=== PATIENT | female | born 1960 | race Caucasian/White ===

== ENCOUNTER 2017-05-14 09:38 | Inpatient (IN) | payer MEDICARE ==
[~2017-05-14] VITALS: Ht 157.5 cm; Wt 42.3 kg
[~2017-05-14 09:38] MED LIST: COMBIVENT PO; HYDRALAZINE HCL25 MG PO; TRAZODONE HCL50 MG PO; ULTRAM50 MG PO
[2017-05-14] MEDS ORDERED: CLONIDINE HCL 0.2 MG TAB PO ONE (10:00)
[2017-05-14 10:32] LABS: ALBUMIN 3.2 g/dL (3.5-5.0); ALBUMIN/GLOBULIN RATIO 0.7 (0.8-2.0); ANION GAP 20.6 mmol/L (8-16); CALCIUM 7.7 mg/dL (8.4-10.2); CREATININE, SERUM 4.42 mg/dL (0.57-1.11); POTASSIUM 4.6 mmol/L (3.5-5.1)
[2017-05-14 10:34] LABS: INR 0.95; PROTHROMBIN TIME 13.2 seconds (11.9-14.5)
[2017-05-14 10:35] LABS: PARTIAL THROMBOPLASTIN TIME 34.9 seconds (23.8-35.5)
[2017-05-14 10:38] LABS: CREATINE KINASE MB 13.9 ng/mL (0.00-5.00)
[2017-05-14 10:42] LABS: BASOPHILS # (AUTO) 0.1 (0.0-0.1); BASOPHILS % 0.8 % (0.0-1.0); EOSINOPHILS # (AUTO) 0.1 (0.0-0.4); EOSINOPHILS % 1.6 % (0.0-6.0); HEMATOCRIT 29.4 % (34.2-44.1); HEMOGLOBIN 9.7 g/dL (12.0-16.0); LYMPHOCYTES # (AUTO) 0.8 (1.0-3.2); LYMPHOCYTES % 13.8 % (18.0-39.1); MEAN CORPUSCULAR HEMOGLOBIN 29.4 pg (28-32); MEAN CORPUSCULAR VOLUME 89.1 fL (81-99); MONOCYTES # (AUTO) 0.7 (0.2-0.8); NEUTROPHILS # (AUTO) 4.4 (2.1-6.9); NEUTROPHILS % 72.5 % (38.7-80.0); PLATELET COUNT 228 x10e3/uL (140-360); RED CELL DISTRIBUTION WIDTH 16.3 % (11.7-14.4)
[2017-05-14] MEDS ORDERED: LORAZEPAM INJ 2 MG/ML VIAL IV ONE (10:45)
[2017-05-14] MEDS ORDERED: HYDROCODONE/APAP 5MG-325MG TAB PO ONE (10:45)
--- NOTE | 2017-05-14 11:10 | Diagnostic Imaging Report ---
PROCEDURE: A single AP view of the chest. COMPARISON: [facility], , CHEST SINGLE (PORTABLE), 03/26/2017, 15:18. INDICATIONS: SHORTNESS OF BREATH FINDINGS: Lines/tubes: Sternotomy wire sutures, mediastinal clips and a right IJ tunneled hemodialysis catheter appear stable. Lungs: Mild pulmonary edema compatible with fluid overload not significantly changed. Pleura: There are bilateral pleural effusions that are slightly smaller compared to the prior study. Heart and mediastinum: The heart is enlarged. Bones: No acute bony abnormality. IMPRESSION: Cardiomegaly with mild pulmonary edema and small bilateral pleural effusions. Nile Barbosa D.O. Dictated by: Nile Barbosa D.O. on 05/14/2017 at 11:18 Electronically approved by: Nile Barbosa D.O. on 05/14/2017 at 11:18
[2017-05-14] MEDS ORDERED: METOPROLOL TARTRATE INJ 1 MG/ML VIAL IV ONE (12:00)
[2017-05-14] MEDS ORDERED: SODIUM CHLORIDE FLUSH 10 ML SYR INJ PRN (13:45)
[2017-05-14] MEDS ORDERED: NITROGLYCERIN 2% OINT 1 GM PKT TOP ONE ×2 (14:00→16:15)
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
[2017-05-14] MEDS ORDERED: SODIUM CHLORIDE 0.9% 1000ML 2,000 ML ONE (16:34)
[2017-05-14] MEDS ORDERED: HYDRALAZINE HCL 25 MG TAB PO SCH (17:00)
[2017-05-14] MEDS ORDERED: CLONIDINE HCL 0.1 MG TAB PO SCH (17:00)
[2017-05-14] MEDS ORDERED: TRAZODONE HCL 50 MG TAB PO PRN (17:15)
[2017-05-14 17:21] VITALS: BP 159/100
[2017-05-14 18:08] VITALS: BP 159/110
[2017-05-14] MEDS: IPRATROPIUM/ALBUTEROL SULFATE 4 GM INH INH SCH (19:00)
--- NOTE | 2017-05-14 19:02 | History and Physical ---
HISTORY OF PRESENT ILLNESS: The patient was admitted through the emergency room. She was seen by myself in the emergency room. She was also appropriately seen by her medical library assistant. See notes. The patient presented with shortness of breath. She has a history of hypertension and chronic degenerative joint disease with chronic pain. History includes coronary artery disease with prior bypass graft. Hypertension. Anemia secondary to renal disease. Chronic anxiety and depression. Chronic hemodialysis patient who has chronically been noncompliant with dialysis. The patient states she is not been to dialysis for approximately 4 weeks. See also multiple prior admissions for similar difficulties. Patient has undergone exhaustive prior discharge planning and post hospitalization efforts including prior admissions to nursing homes. She actually refused to go to dialysis at times while in her jail. Eventually she left the jail against advice. PAST SURGICAL HISTORY: Includes also a hysterectomy and thoracentesis as well as AV access for hemodialysis. SOCIAL HISTORY: Prior smoker. No tobacco or alcohol. FAMILY HISTORY: Is positive for hypertension and organic heart disease. ALLERGIES: DENIES KNOWN DRUG ALLERGY. See also ER note. PHYSICAL EXAMINATION VITAL SIGNS: Blood pressure 141/96. Blood pressure 152/108 later, 2nd check. O2 at 2 liters per minute, O2 saturation 99%. Pulse 81. Respiratory rate 21. Temperature 97.9. Blood pressure on arrival 157/116, treated. HEENT: Mild pallor. No icterus. Pupils round and reactive. Multiple 0.5 to 1 cm shallow denuded areas over the scalp which the patient states have occurred intermittently lifelong. No prior dermatological visits according to the patient. Throat clear. NECK: Neck flexes. Carotids palpable. PULMONARY: Auscultation grossly clear to percussion and auscultation. HEART: Cardiac sounds S1 and S2, soft. ABDOMEN: Soft. Bowel sounds normal. EXTREMITIES: Do not reveal edema. Pulses are trace positive. NEUROLOGIC: Strength poor. DTRs depressed. Trace tenderness LS spine area. MEDICATIONS: See also old prior to admission med list, which includes hydralazine 100 t.i.d. Ultram 50 q.4 p.r.n. severe pain. Trazodone 50 mg nightly for chronic depression and insomnia. Combivent one inhalation b.i.d. See also initial lab including hemoglobin 9.7. BUN 84. CO2 12. AST 59. Alkaline folic 331. CURRENT IMPRESSION: As above. End-stage renal disease with noncompliance, patient not having gone to dialysis for several weeks. Presents with acidosis and fluid overload. Chest x-ray ER today, cardiomegaly with mild pulmonary edema and small bilateral pleural effusions. History of coronary artery disease post prior bypasses as mentioned. The patient had declined further cardiac assessment on recent admissions. See also initial and followup orders. PLAN: For hemodialysis here. Control chronic pain and blood pressure elevation. Resume home med regimen. Job#: [id number]
[2017-05-14 20:00] VITALS: BP 140/100
[2017-05-14] MEDS: HYDRALAZINE HCL 25 MG TAB PO SCH (21:12)
[2017-05-14] MEDS: TRAMADOL HCL 50 MG TAB PO PRN (22:45)
[2017-05-15] VITALS: BP 125/84
[2017-05-15] MEDS: TRAMADOL HCL 50 MG TAB PO PRN ×4 (02:49→21:01)
[2017-05-15 04:00] VITALS: BP 139/91
[2017-05-15] MEDS ORDERED: ACETAMINOPHEN 325 MG TAB PO PRN (07:15)
[2017-05-15] MEDS: IPRATROPIUM/ALBUTEROL SULFATE 4 GM INH INH SCH ×2 (07:18→19:40)
[2017-05-15 07:20] LABS: BASOPHILS # (AUTO) 0.1 (0.0-0.1); BASOPHILS % 1.1 % (0.0-1.0); EOSINOPHILS # (AUTO) 0.1 (0.0-0.4); EOSINOPHILS % 1.7 % (0.0-6.0); HEMATOCRIT 28.8 % (34.2-44.1); HEMOGLOBIN 9.6 g/dL (12.0-16.0); LYMPHOCYTES % 16.1 % (18.0-39.1); MEAN CORPUSCULAR HEMOGLOBIN 29.6 pg (28-32); MEAN CORPUSCULAR HGB CONC 33.3 g/dL (31-35); MEAN CORPUSCULAR VOLUME 88.9 fL (81-99); MONOCYTES # (AUTO) 0.8 (0.2-0.8); MONOCYTES % 12.7 % (4.4-11.3); NEUTROPHILS # (AUTO) 4.4 (2.1-6.9); NEUTROPHILS % 68.1 % (38.7-80.0); PLATELET COUNT 213 x10e3/uL (140-360); RED BLOOD COUNT 3.24 x10e6/uL (3.6-5.1); RED CELL DISTRIBUTION WIDTH 16.3 % (11.7-14.4)
[2017-05-15 07:38] LABS: ANION GAP 16.2 mmol/L (8-16); CALCIUM 8.4 mg/dL (8.4-10.2); CREATININE, SERUM 2.49 mg/dL (0.57-1.11); POTASSIUM 4.2 mmol/L (3.5-5.1)
[2017-05-15 07:55] VITALS: BP 131/63
[2017-05-15] MEDS: KETOCONAZOLE 2% SHAMPOO 4OZ BTL TOP SCH (09:00)
[2017-05-15] MEDS: HYDRALAZINE HCL 25 MG TAB PO SCH ×3 (09:00→21:00)
[2017-05-15] MEDS ORDERED: HYDROCORTISONE 1% EXT SCH (09:00)
[2017-05-15] MEDS ORDERED: COMBIVENT PO SCH (09:00)
[2017-05-15] MEDS: CLONIDINE HCL 0.1 MG TAB PO SCH ×3 (09:00→23:57)
[2017-05-15 12:00] VITALS: BP 128/80
--- NOTE | 2017-05-15 14:05 | Consultation ---
DATE OF CONSULTATION: CARDIOLOGY CONSULTATION REQUESTING PHYSICIAN: Dr. Frey. REASON FOR CONSULTATION: Dyspnea. History of CAD. HISTORY OF PRESENTING ILLNESS: Ms. Joyce is a 57-year-old lady with past medical history as listed below. Presented with complaints of shortness of breath. Patient states that she has been short of breath for several months. She has had multiple admissions to the hospital. She states recently the shortness of breath got worse, and she decided to come to the ER. She also gets chest pain off and on. She has undergone a CABG. She is very nondescript about her chest pain. She has end-stage renal disease but does not keep her dialysis appointments. REVIEW OF SYMPTOMS: CONSTITUTIONAL: Has some fatigue and weakness. HEENT: No headache, blurring of vision, seizures, syncope. CARDIOVASCULAR: Has chest pain. Has dyspnea. No orthopnea or PND. RESPIRATORY: Has some cough. No fever or expectoration. GI: No abdominal pain, vomiting, diarrhea. : No dysuria, frequency, incontinence. ALLERGIES: NO KNOWN DRUG ALLERGIES. MEDICATIONS: See list. PAST MEDICAL HISTORY: 1. History of CAD status post CABG. 2. History of end-stage renal disease on hemodialysis. 3. History of pleural effusions, has undergone thoracentesis in the past. 4. History of hypertension. 5. History of anemia. 6. History of CHF. 7. History of anxiety. SOCIAL HISTORY: Patient states that she does not smoke. She states all her family members smoke. Denies any alcohol use. FAMILY HISTORY: There is a family history of hypertension. PHYSICAL EXAMINATION: GENERAL: Thin-built lady. Awake, alert, not in any obvious distress. VITALS: Heart rate is 93, blood pressure 131/63, respiratory rate is 18, temperature 96.7. HEENT: Atraumatic. NECK: No JVD, bruit, thyromegaly, lymphadenopathy. CARDIOVASCULAR: First and second heart sounds heard. No murmurs, rubs or gallops appreciated. CHEST: Decreased air entry at the bases. Midline surgical scar. No adventitious sounds appreciated. ABDOMINAL: Soft, nontender. EXTREMITIES: No edema. LABORATORY DATA: Sodium is 139, potassium is 4.2, chloride is 103, bicarb is 24, BUN is 36, creatinine is 2.4, glucose is 90. Hemoglobin is 9.6, hematocrit is 28.8, platelets are 213, white count is 6.4. EKG shows sinus rhythm, rightward axis, nonspecific ST-T changes. Chest x-ray shows pulmonary edema, pleural effusions. IMPRESSION: 1. Congestive heart failure. 2. End-stage renal disease on hemodialysis. 3. Coronary artery disease with history of coronary artery bypass graft. 4. Anemia. 5. History of hypertension. PLAN: 1. Fluid removal with dialysis. 2. Diuretics as per Renal. 3. Patient has had echocardiograms in the past. Will repeat an echocardiogram to assess LV function, valvular function. 4. She is currently on hydralazine, can continue the same. 5. No SONIA inhibitors due to renal failure. 6. Further cardiac workup depending on clinical course. I discussed my impression and plan of management with the patient. As always, appreciate and thank you very much for your referrals. Job#: [id number] EV
[2017-05-15 16:28] VITALS: BP 130/88
[2017-05-15] MEDS: METOPROLOL TARTRATE 25 MG TAB PO SCH (17:00)
[2017-05-15] MEDS ORDERED: SODIUM CHLORIDE 0.9% 1000ML 1,000 ML ONE (17:05)
[2017-05-15] MEDS ORDERED: ALBUMIN HUMAN 50 ML IV PRN (17:15)
[2017-05-15] MEDS ORDERED: HEPARIN SOD (PORCINE) 1000 UNIT/ML SDV IV PRN (17:15)
[2017-05-15] MEDS ORDERED: SODIUM CHLORIDE 0.9% 1000ML 1,000 ML IV PRN (17:15)
[2017-05-15] MEDS ORDERED: MANNITOL 25% 12.5GM/50 ML VIAL IV PRN (17:15)
[2017-05-15 20:00] VITALS: BP 124/71
[2017-05-15] MEDS ORDERED: ATORVASTATIN 20 MG TAB PO SCH (21:00)
[2017-05-16 00:18] VITALS: BP 140/94
[2017-05-16] MEDS: TRAMADOL HCL 50 MG TAB PO PRN ×3 (01:40→15:09)
[2017-05-16 04:18] VITALS: BP 123/77
[2017-05-16 07:18] VITALS: BP 132/83
[2017-05-16] MEDS: IPRATROPIUM/ALBUTEROL SULFATE 4 GM INH INH SCH (07:50)
[2017-05-16 07:58] LABS: ALBUMIN/GLOBULIN RATIO 0.8 (0.8-2.0); ANION GAP 17.4 mmol/L (8-16); CREATININE, SERUM 3.03 mg/dL (0.57-1.11); POTASSIUM 4.4 mmol/L (3.5-5.1)
[2017-05-16] MEDS: CLONIDINE HCL 0.1 MG TAB PO SCH ×2 (08:42→15:00)
[2017-05-16] MEDS: HYDRALAZINE HCL 25 MG TAB PO SCH ×2 (08:42→15:00)
[2017-05-16] MEDS: METOPROLOL TARTRATE 25 MG TAB PO SCH ×2 (08:42→16:47)
[2017-05-16] MEDS ORDERED: HYDROCORTISONE 1% CREAM 30 GM TUBE TOP SCH (09:00)
[2017-05-16] MEDS ORDERED: ASPIRIN 81 MG ENTERIC COATED PO SCH (09:00)
[2017-05-16] MEDS ORDERED: ASPIRIN 325 MG TAB PO SCH (09:00)
[2017-05-16] MEDS: KETOCONAZOLE 2% SHAMPOO 4OZ BTL TOP SCH (09:00)
[2017-05-16 12:14] VITALS: BP 89/63
[2017-05-16] MEDS ORDERED: EPOETIN ALFA 10000 UNIT/ML VIAL SC SCH (13:00)
[2017-05-16] MEDS ORDERED: RISPERIDONE 0.5 MG TAB PO PRN (14:45)
[2017-05-16] MEDS ORDERED: LORAZEPAM 0.5 MG TAB PO PRN ×2 (14:45)
[2017-05-16] MEDS ORDERED: TRAZODONE HCL 50 MG TAB PO PRN (15:30)
[2017-05-16 16:14] VITALS: BP 119/72
--- NOTE | 2017-05-16 17:03 | Consultation ---
DATE OF CONSULTATION: May 15, 2017 PSYCHIATRIC CONSULTATION Patient dictation and medication was not adjusted in time due to problem accessing EMR yesterday at home. REASON FOR CONSULTATION: To evaluate the patient's psychosis. HISTORY OF PRESENT ILLNESS: The patient is a 57-year-old female admitted to the hospital for hypertension and renal failure. Psychiatric consultation is called to evaluate the patient's mood. The patient is well known to me from previous hospitalization. She has been admitted to the hospital for similar issues of noncompliance with her dialysis. She has history of hypertension, anemia, anxiety, depression. Upon evaluation today, the patient is found to be finishing her dialysis. She is alert, awake and oriented to situation. She claims that she is here as she has been missing some of her dialysis due to lack of transportation. She reports feeling anxious at times, but denies any depression. She denies feeling helpless or hopeless. She denies any suicidal or homicidal ideation. She denies any hallucinations. She is having poor sleep, but denies any appetite problems. PAST PSYCHIATRIC HISTORY: The patient has history of anxiety and mood disorder. She denies past suicide attempt. She denies alcohol and drug use. FAMILY HISTORY: The patient denies any family history of psychiatric illness. SOCIAL HISTORY: The patient states that she lives with her . MENTAL STATUS EXAM: The patient is an alert, awake, female who appears thin. She is alert, awake and oriented to situation, place and time. She is somewhat anxious, but denies suicidal or homicidal ideation. She denies any hallucinations. Thought process is concrete. Insight and judgment are fair. Psychomotor state is passive. Memory seems to be grossly intact. CURRENT MEDICATIONS: 1. Tramadol. 2. Clonidine. 3. Hydralazine. 4. Aspirin. 5. Atorvastatin. 6. Metoprolol. 7. Hydrocortisone. 8. Acetaminophen. 9. Ketoconazole. 10. Trazodone 50 mg p.o. nightly p.r.n. 11. Sodium chloride. LABORATORY DATA: WBCs 6.47, RBCs 30.24, hemoglobin 9.6, hematocrit 28.8, platelets 213,000. Sodium 139, potassium 4.2, chloride 103, CO2 24, BUN 36, creatinine 2.94. AST 59, ALT 37. ASSESSMENT AND PLAN 1. Adjustment disorder, mixed mood; rule out dementia, rule out psychosis. Plan is to add Remeron 7.5 mg p.o. nightly. 2. Add Ativan 0.25 mg p.o. q.6 h. p.r.n. 3. Continue Risperdal 0.25 mg p.o. q.6 h. p.r.n. as staff reported the patient was seeing people in the room. 4. Continue trazodone nightly p.r.n. 5. Continue with other medications as dictated. 6. Supportive therapy. Thank you for this consultation. Job#: [id number]
--- NOTE | 2017-05-16 17:15 | Discharge Summary ---
See also history and physical, ER note, and renal consult. The patient was hospitalized with renal failure and fluid overload as she had not been going to dialysis. She was dialyzed twice while here and had marked symptomatic improvement. [id number] medical regimen essentially was continued regarding hyperlipoproteinemia, hypertension, chronic pain with degenerative joint disease. See also serial laboratory, imaging studies compatible with anemia of chronic disease and anemia associated with chronic renal failure. White counts normal. Serology negative. Chemistries compatible with chronic renal failure. Elevated alkaline phosphatase 275, to follow up. Isoenzymes pending. Admission chest x-ray May 14 with pulmonary edema and small effusions. The patient was kindly seen while here by her die trimmer, see notes. She will follow up with outpatient dialysis, and transportation is being arranged for her. FINAL IMPRESSIONS: 1. Chronic renal failure with noncompliance. 2. Primary hypertension. 3. Mood disorder. 4. Coronary artery disease post prior bypass. 5. Degenerative joint disease. 6. Chest wall pain. 7. Elevated alkaline phosphatase, isoenzymes pending. 8. Scalp skin wounds treated with topical steroids and Nizoral while here. Patient was advised to follow up with my office as an outpatient within 1 week. She is advised to continue dialysis. She is advised to follow up with her marketing clerk and consultants as needed. LALITHA LEE MD Job#: [id number] EV
[2017-05-16] MEDS ORDERED: MIRTAZAPINE 15 MG TAB PO SCH (21:00)
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
--- NOTE | 2017-05-19 07:57 | Progress Note ---
DATE: May 16, 2017 PSYCHIATRIC PROGRESS NOTE Patient was evaluated and events noted. Patient is in the room. She is getting dialysis. She is doing fair. She denies any depression. She reports less anxious. She is eating more. She denies any problem with sleep. Patient is taking her medication and denies any side effects. Blood pressure was somewhat low as her medication was not held for dialysis. ASSESSMENT: Adjustment disorder. PLAN: Reduce trazodone from 50 mg p.o. at bedtime p.r.n. to 25 mg p.o. at bedtime p.r.n. Hold for sedation. Continue Remeron 7.5 mg p.o. at bedtime scheduled. Hold for sedation. Continue with Ativan 0.25 mg p.o. q.6 h. p.r.n. Add 0.25 mg p.o. q.6 h. p.r.n. for psychosis. DICTATED BY JORDANA CABA Job#: [id number] NM
== END 2017-05-16 18:56 | disposition home or self-care (01) | DRG 291 ==
LOC: ER 09:38 → ERHOLD 13:50 → MED/SURG 16:34
PROVIDERS: ADMIT Internal Medicine; ATTEND Internal Medicine
PROC: 5A1D70Z Performance of Urinary Filtration, Intermittent, Less than 6 Hours Per Day (ICD-10-PCS; principal; 2017-05-14)
DX: I13.2 Hypertensive heart and chronic kidney disease with heart failure and with stage 5 chronic kidney disease, or end stage renal disease (principal); N18.6 End stage renal disease; E87.2 Acidosis; Z99.81 Dependence on supplemental oxygen; E83.39 Other disorders of phosphorus metabolism; Z95.1 Presence of aortocoronary bypass graft; I50.9 Heart failure, unspecified; Z99.2 Dependence on renal dialysis; Z91.15 Patient's noncompliance with renal dialysis; I25.10 Atherosclerotic heart disease of native coronary artery without angina pectoris; M19.90 Unspecified osteoarthritis, unspecified site; R07.89 Other chest pain; G89.29 Other chronic pain; D63.1 Anemia in chronic kidney disease; D63.8 Anemia in other chronic diseases classified elsewhere; R09.02 Hypoxemia; F43.23 Adjustment disorder with mixed anxiety and depressed mood; E87.6 Hypokalemia; Z87.891 Personal history of nicotine dependence; Z86.73 Personal history of transient ischemic attack (TIA), and cerebral infarction without residual deficits; S01.00XD Unspecified open wound of scalp, subsequent encounter
CPT/HCPCS: 36415; 71010; 80048; 80053; 82550; 82553; 84080; 84484; 85025; 85610; 85730; 86704; 86706; 87340; 90962; 93005; 93041; 93306; 94640; 99284; J1644; J2060; J2150; J7030; Q4081

== ENCOUNTER 2017-06-15 15:27 | Observation (INO) | payer MEDICARE ==
[~2017-06-15] VITALS: Ht 157.5 cm; Wt 42.2 kg
[2017-06-15] MEDS ORDERED: ZIPRASIDONE 20 MG VIAL IM STA (16:23)
[2017-06-15] MEDS ORDERED: ZIPRASIDONE 20 MG VIAL IM ONE (16:28)
[2017-06-15] MEDS ORDERED: MORPHINE SULFATE 2 MG/ML SYR IV STA (16:53)
[2017-06-15 17:01] LABS: BASOPHILS # (AUTO) 0.1 (0.0-0.1); BASOPHILS % 0.9 % (0.0-1.0); EOSINOPHILS # (AUTO) 0.1 (0.0-0.4); EOSINOPHILS % 1.4 % (0.0-6.0); HEMATOCRIT 33.2 % (34.2-44.1); HEMOGLOBIN 10.9 g/dL (12.0-16.0); LYMPHOCYTES % 14.8 % (18.0-39.1); MEAN CORPUSCULAR HEMOGLOBIN 28.9 pg (28-32); MEAN CORPUSCULAR HGB CONC 32.8 g/dL (31-35); MEAN CORPUSCULAR VOLUME 88.1 fL (81-99); MONOCYTES # (AUTO) 0.6 (0.2-0.8); MONOCYTES % 9.1 % (4.4-11.3); NEUTROPHILS # (AUTO) 4.9 (2.1-6.9); NEUTROPHILS % 73.3 % (38.7-80.0); PLATELET COUNT 210 x10e3/uL (140-360); RED BLOOD COUNT 3.77 x10e6/uL (3.6-5.1)
[2017-06-15 17:06] LABS: INR 0.95; PROTHROMBIN TIME 13.1 seconds (11.9-14.5)
[2017-06-15 17:06] LABS: BILIRUBIN,URINE NEGATIVE (NEGATIVE); CLARITY,URINE CLEAR (CLEAR); COLOR,URINE YELLOW (YELLOW); KETONES,URINE NEGATIVE (NEGATIVE); LEUKOCYTE ESTERASE ,URINE NEGATIVE (NEGATIVE); NITRITE,URINE NEGATIVE (NEGATIVE); PROTEIN,URINE DIPSTICK 2+ (NEGATIVE); URINE UROBILINOGEN 0.2 mg/dL (0.2 - 1)
[2017-06-15 17:07] LABS: PARTIAL THROMBOPLASTIN TIME 43.4 seconds (23.8-35.5)
--- NOTE | 2017-06-15 17:14 | Diagnostic Imaging Report ---
EXAM: CHEST SINGLE (PORTABLE) DATE: 06/15/2017 3:32 PM INDICATION: Pain COMPARISON: 05/14/2017 FINDINGS: Sternotomy wires and right IJ dialysis catheter present. Cardiomegaly, moderate edema, and small to moderate bilateral pleural effusions present. IMPRESSION: Volume overload with bilateral pleural effusions. Superimposed pneumonia not excluded. Signed by: Dr. Vamsi Tim MD on 06/15/2017 5:10 PM
[2017-06-15 17:15] LABS: EPITHELIAL CELLS,URINE FEW /LPF
[2017-06-15] MEDS ORDERED: FUROSEMIDE INJ 10 MG/ML 10 ML VIAL IV ONE (17:15)
[2017-06-15 17:16] LABS: ALBUMIN 3.7 g/dL (3.5-5.0); ALBUMIN/GLOBULIN RATIO 0.8 (0.8-2.0); ANION GAP 18.7 mmol/L (8-16); CALCIUM 7.9 mg/dL (8.4-10.2); CREATININE, SERUM 4.15 mg/dL (0.57-1.11)
[2017-06-15 17:23] LABS: CREATINE KINASE MB 8.8 ng/mL (0.00-5.00); TROPONIN I 0.18 ng/mL (0-0.300)
[2017-06-15] MEDS ORDERED: FUROSEMIDE INJ 10 MG/ML 4 ML VIAL ONE (17:29)
[2017-06-15] MEDS ORDERED: SODIUM CHLORIDE 0.9% 50ML 50 ML ONE (17:30)
[2017-06-15] MEDS ORDERED: ONDANSETRON HCL INJ 2 MG/ML VIAL IV ONE (17:30)
[2017-06-15] MEDS ORDERED: FUROSEMIDE INJ 10 MG/ML 2 ML VIAL ONE (17:30)
[2017-06-15 17:35] LABS: POTASSIUM 5.7 mmol/L (3.5-5.1)
[2017-06-15] MEDS ORDERED: SODIUM CHLORIDE FLUSH 10 ML SYR INJ PRN (18:15)
[2017-06-15] MEDS ORDERED: ONDANSETRON HCL INJ 2 MG/ML VIAL IV PRN (18:15)
[2017-06-15] MEDS ORDERED: SODIUM BICARBONATE 8.4% INJ 50 ML SYR IV STA (18:21)
[2017-06-15] MEDS ORDERED: SOD POLYSTYRENE SULFONATE SUSP 15 GM/60 ML BTL PO ONE (18:30)
[2017-06-15 20:44] VITALS: BP 133/90
[2017-06-16 00:16] VITALS: BP 146/110
[2017-06-16] MEDS: MORPHINE SULFATE 2 MG/ML SYR IV PRN ×2 (01:20→02:00)
[2017-06-16 03:03] VITALS: BP 129/96
[2017-06-16] MEDS ORDERED: HEPARIN SOD (PORCINE) 1000 UNIT/ML SDV IV ONE (04:30)
[2017-06-16] MEDS ORDERED: SODIUM CHLORIDE 0.9% 1000ML 1,000 ML IV ONE (04:45)
[2017-06-16 08:08] VITALS: BP 146/95
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
--- NOTE | 2017-06-17 15:22 | History and Physical ---
This was one of many admissions for this noncompliant patient with end-stage renal disease. She has not been attending hemodialysis for several weeks. She presented with subjective shortness of breath and fluid overload on x-ray. She was also metabolically acidotic. Treatment was initiated medically. The patient's hypertension was medically controlled. Plans for morning hemodialysis were set up. See also emergency room note. P.R.N. analgesics were provided by the emergency room physician who saw the patient on arrival. See also multiple old records. History has included hyperlipoproteinemia, degenerative joint disease, coronary artery disease. Patient denying permission for reassessment medically regarding her coronary disease chronically. Mood disorder. COPD. History of UTI in December. Patient has not attended her scheduled outpatient office visits since her last visit here. The prior studies have revealed osteopenia and anemia associated with the patient's chronic renal failure. The patient has advanced degenerative disk disease at the lumbosacral junction and does have chronic discomfort and chronically takes tramadol at home. Denies contributory family history. Denies known drug allergy. Denies surgical history. Has had prior heart cath and access for dialysis. She is a poor historian. PHYSICAL EXAMINATION GENERAL: In no distress now. VITALS: BP 140/90, pulse 88 and regular, respiratory rate 18 and not labored. HEENT: Mild pallor. No icterus. Throat is clear. NECK: Supple. Carotids are palpable. PULMONARY: Auscultation showed reduced breath sounds. CARDIAC: Sounds S1 and S2 distant. ABDOMEN: Soft. Bowel sounds normal. EXTREMITIES: Dampened pulses. No significant cyanosis or edema. DTRs depressed. Strength fair. Trace tenderness in lumbosacral spine area without radicular signs. IMPRESSION: As above. Renal failure, degenerative joint disease, chronic pain, coronary disease, hypertension, history of diastolic congestive heart failure, hyperlipidemia, mood disorder, recurrent urinary tract infection by history. PLAN: Control blood pressure. Control pain. Dialysis. Re-educate and consider with the patient alternatives to attempt to improve compliance. Job#: [id number]
--- NOTE | 2017-06-17 15:26 | Discharge Summary ---
See also ER record and history and physical. The patient presented having her usual being noncompliant with her dialysis. She presented with fluid overload and metabolic acidosis. The blood pressure and pain control plan initiated with also plans for a.m. dialysis. See also serial laboratory imaging studies compatible with some amount of fluid overload and acidosis as mentioned. The patient was counseled regarding plan of care for which she had presented herself to the emergency room. On the 1st hospital morning, however, the patient left the hospital against medical advice. FINAL IMPRESSION 1. End-stage renal disease. 2. Chronic hemodialysis. 3. Noncompliance. 4. Degenerative joint disease and chronic pain including lumbosacral degenerative disease. 5. Coronary disease. The patient declines reassessment. 6. Hypertension. 7. History of diastolic congestive heart failure. 8. Hyperlipoproteinemia. 9. Mood disorder. 10. History of recurrent urinary tract infections. LALITHA LEE MD Job#: [id number]
== END 2017-06-16 07:55 | disposition left against medical advice (07) ==
LOC: ER 15:27 → ERHOLD 20:18
PROVIDERS: ADMIT Internal Medicine; ATTEND Internal Medicine
DX: E87.70 Fluid overload, unspecified (principal); E87.5 Hyperkalemia; E87.2 Acidosis; I13.2 Hypertensive heart and chronic kidney disease with heart failure and with stage 5 chronic kidney disease, or end stage renal disease; N18.6 End stage renal disease; E11.22 Type 2 diabetes mellitus with diabetic chronic kidney disease; I50.32 Chronic diastolic (congestive) heart failure; Z99.2 Dependence on renal dialysis; Z53.29 Procedure and treatment not carried out because of patient's decision for other reasons; Z91.15 Patient's noncompliance with renal dialysis; D63.8 Anemia in other chronic diseases classified elsewhere; F41.9 Anxiety disorder, unspecified; I25.10 Atherosclerotic heart disease of native coronary artery without angina pectoris; Z95.1 Presence of aortocoronary bypass graft; M47.817 Spondylosis without myelopathy or radiculopathy, lumbosacral region; M19.90 Unspecified osteoarthritis, unspecified site; G89.29 Other chronic pain; E78.5 Hyperlipidemia, unspecified; F39 Unspecified mood [affective] disorder; J44.9 Chronic obstructive pulmonary disease, unspecified; Z87.440 Personal history of urinary (tract) infections
CPT/HCPCS: 36415; 71010; 80053; 81001; 82550; 82553; 83690; 83880; 84484; 85025; 85610; 85730; 87086; 87340; 93005 ×2; 99284; G0378 ×2; J1644; J1940 ×2; J2270 ×2; J2405; J3486

== ENCOUNTER 2017-06-19 05:20 | Emergency (ER) | payer MEDICARE ==
[~2017-06-19] VITALS: Ht 157.5 cm; Wt 42.2 kg
[2017-06-19 06:04] LABS: BASOPHILS # (AUTO) 0.1 (0.0-0.1); BASOPHILS % 0.8 % (0.0-1.0); EOSINOPHILS # (AUTO) 0.3 (0.0-0.4); HEMATOCRIT 30.8 % (34.2-44.1); HEMOGLOBIN 9.8 g/dL (12.0-16.0); LYMPHOCYTES # (AUTO) 1.1 (1.0-3.2); MEAN CORPUSCULAR HEMOGLOBIN 28.6 pg (28-32); MEAN CORPUSCULAR HGB CONC 31.8 g/dL (31-35); MEAN CORPUSCULAR VOLUME 89.8 fL (81-99); MONOCYTES # (AUTO) 0.6 (0.2-0.8); MONOCYTES % 8.2 % (4.4-11.3); NEUTROPHILS # (AUTO) 5.3 (2.1-6.9); NEUTROPHILS % 71.6 % (38.7-80.0); PLATELET COUNT 206 x10e3/uL (140-360); RED BLOOD COUNT 3.43 x10e6/uL (3.6-5.1); RED CELL DISTRIBUTION WIDTH 16.9 % (11.7-14.4)
[2017-06-19 06:13] LABS: INR 0.91; PROTHROMBIN TIME 12.7 seconds (11.9-14.5)
[2017-06-19 06:14] LABS: PARTIAL THROMBOPLASTIN TIME 26.4 seconds (23.8-35.5)
[2017-06-19 06:23] LABS: ALBUMIN 3.4 g/dL (3.5-5.0); ALBUMIN/GLOBULIN RATIO 0.7 (0.8-2.0); ANION GAP 20.3 mmol/L (8-16); CALCIUM 7.7 mg/dL (8.4-10.2); CREATININE, SERUM 4.23 mg/dL (0.57-1.11); MAGNESIUM 2.5 MG/DL (1.3-2.1); POTASSIUM 4.3 mmol/L (3.5-5.1)
[2017-06-19 06:30] LABS: TROPONIN I 0.668 ng/mL (0-0.300)
--- NOTE | 2017-06-19 06:31 | Diagnostic Imaging Report ---
EXAMINATION: CHEST SINGLE (PORTABLE) INDICATION: ESRD, overload at COMPARISON: 06/15/2017 and 05/14/2017 FINDINGS: TUBES and LINES: Right IJ dual-lumen dialysis catheter is stable in good position with tip at the right atrium. LUNGS: Lungs are not well inflated. There are bibasilar atelectasis. There is perihilar interstitial opacities, consistent with interstitial edema. PLEURA: Small bilateral pleural effusions HEART AND MEDIASTINUM: Cardiac size is moderately enlarged. There are atherosclerotic calcifications within the aorta. Midline sternotomy wires are stable. BONES AND SOFT TISSUES: No acute osseous lesion. Soft tissues are unremarkable. UPPER ABDOMEN: No free air under the diaphragm. IMPRESSION: Stable chest with evidence of pulmonary edema and bilateral pleural effusions. Signed by: Dr. Horacio Ba M.D. on 06/19/2017 6:27 AM
== END 2017-06-19 06:24 | disposition left against medical advice (07) ==
LOC: ER 05:20
DX: G89.29 Other chronic pain (principal); R60.9 Edema, unspecified; I12.0 Hypertensive chronic kidney disease with stage 5 chronic kidney disease or end stage renal disease; N18.6 End stage renal disease; Z99.2 Dependence on renal dialysis; B19.20 Unspecified viral hepatitis C without hepatic coma; I25.10 Atherosclerotic heart disease of native coronary artery without angina pectoris; Z95.1 Presence of aortocoronary bypass graft; Z85.05 Personal history of malignant neoplasm of liver; Z86.73 Personal history of transient ischemic attack (TIA), and cerebral infarction without residual deficits
CPT/HCPCS: 36415; 71010; 80053; 82550; 82553; 83735; 84484; 85025; 85610; 85730; 93005; 99283

== ENCOUNTER 2017-06-22 19:10 | Inpatient (IN) | payer MEDICARE ==
[~2017-06-22] VITALS: Ht 157.5 cm; Wt 42.2 kg
[2017-06-22] MEDS ORDERED: ASPIRIN 81 MG CHEW TAB PO ONE (19:45)
[2017-06-22 20:02] LABS: BASOPHILS # (AUTO) 0.1 (0.0-0.1); BASOPHILS % 0.6 % (0.0-1.0); EOSINOPHILS # (AUTO) 0.2 (0.0-0.4); EOSINOPHILS % 2.3 % (0.0-6.0); HEMATOCRIT 31.6 % (34.2-44.1); LYMPHOCYTES # (AUTO) 0.9 (1.0-3.2); LYMPHOCYTES % 10.7 % (18.0-39.1); MEAN CORPUSCULAR HEMOGLOBIN 28.5 pg (28-32); MEAN CORPUSCULAR HGB CONC 31.6 g/dL (31-35); MONOCYTES # (AUTO) 0.7 (0.2-0.8); MONOCYTES % 8.4 % (4.4-11.3); NEUTROPHILS # (AUTO) 6.2 (2.1-6.9); NEUTROPHILS % 77.4 % (38.7-80.0); PLATELET COUNT 227 x10e3/uL (140-360); RED BLOOD COUNT 3.51 x10e6/uL (3.6-5.1); RED CELL DISTRIBUTION WIDTH 16.9 % (11.7-14.4)
[2017-06-22 20:13] LABS: INR 0.88; PROTHROMBIN TIME 12.4 seconds (11.9-14.5)
[2017-06-22 20:14] LABS: PARTIAL THROMBOPLASTIN TIME 30.7 seconds (23.8-35.5)
--- NOTE | 2017-06-22 20:20 | Diagnostic Imaging Report ---
EXAMINATION: CHEST SINGLE (NOT PORTABLE) INDICATION: Shortness of breath COMPARISON: 06/19/2017 FINDINGS: TUBES and LINES: Right IJ central line dialysis catheter is stable LUNGS: Lungs are not well inflated. There are bibasilar atelectasis. Significant interval improvement in interstitial edema with residual central vascular congestion. PLEURA: Small bilateral pleural effusions. HEART AND MEDIASTINUM: Cardiac size is moderately enlarged. There are atherosclerotic calcifications within the aorta. BONES AND SOFT TISSUES: No acute osseous lesion. Soft tissues are unremarkable. UPPER ABDOMEN: No free air under the diaphragm. IMPRESSION: Significant improvement in interstitial edema when compared with prior examination. However, residual edema and bilateral pleural effusions are present Signed by: Dr. Horacio Ba M.D. on 06/22/2017 8:16 PM
[2017-06-22 20:23] LABS: ALBUMIN 3.4 g/dL (3.5-5.0); ALBUMIN/GLOBULIN RATIO 0.7 (0.8-2.0); ANION GAP 21.6 mmol/L (8-16); CALCIUM 7.9 mg/dL (8.4-10.2); CREATININE, SERUM 4.67 mg/dL (0.57-1.11); POTASSIUM 4.6 mmol/L (3.5-5.1)
[2017-06-22 20:29] LABS: CREATINE KINASE MB 6.8 ng/mL (0.00-5.00); TROPONIN I 0.274 ng/mL (0-0.300)
[2017-06-22] MEDS ORDERED: SODIUM CHLORIDE FLUSH 10 ML SYR INJ PRN (22:30)
[2017-06-22] MEDS ORDERED: TRAZODONE HCL 50 MG TAB PO PRN (22:30)
[2017-06-22] MEDS ORDERED: ONDANSETRON HCL INJ 2 MG/ML VIAL IV PRN (22:30)
[2017-06-22] MEDS ORDERED: TRAMADOL HCL 50 MG TAB PO ONE (22:30)
[2017-06-22] MEDS ORDERED: ALBUTEROL/IPRATROPIUM 3 ML NEB NEB PRN (22:30)
[2017-06-22] MEDS: HYDRALAZINE HCL 25 MG TAB PO SCH (23:30)
[2017-06-23] MEDS: TRAMADOL HCL 50 MG TAB PO PRN ×2 (05:19→18:45)
[2017-06-23 05:25] LABS: BASOPHILS % 0.4 % (0.0-1.0); EOSINOPHILS # (AUTO) 0.2 (0.0-0.4); EOSINOPHILS % 2.7 % (0.0-6.0); HEMATOCRIT 27.1 % (34.2-44.1); HEMOGLOBIN 8.6 g/dL (12.0-16.0); LYMPHOCYTES # (AUTO) 0.7 (1.0-3.2); LYMPHOCYTES % 9.7 % (18.0-39.1); MEAN CORPUSCULAR HEMOGLOBIN 28.6 pg (28-32); MEAN CORPUSCULAR HGB CONC 31.7 g/dL (31-35); MONOCYTES # (AUTO) 0.7 (0.2-0.8); MONOCYTES % 9.3 % (4.4-11.3); NEUTROPHILS # (AUTO) 5.8 (2.1-6.9); NEUTROPHILS % 77.5 % (38.7-80.0); PLATELET COUNT 199 x10e3/uL (140-360); RED BLOOD COUNT 3.01 x10e6/uL (3.6-5.1); RED CELL DISTRIBUTION WIDTH 16.8 % (11.7-14.4)
[2017-06-23 05:41] LABS: ALBUMIN 3.1 g/dL (3.5-5.0); ALBUMIN/GLOBULIN RATIO 0.8 (0.8-2.0); ANION GAP 18.2 mmol/L (8-16); CALCIUM 7.8 mg/dL (8.4-10.2); CREATININE, SERUM 4.58 mg/dL (0.57-1.11); POTASSIUM 4.2 mmol/L (3.5-5.1)
[2017-06-23] MEDS ORDERED: MANNITOL 25% 12.5GM/50 ML VIAL IV PRN (12:45)
[2017-06-23] MEDS ORDERED: ALBUMIN HUMAN 50 ML IV PRN (12:45)
[2017-06-23] MEDS ORDERED: SODIUM CHLORIDE 0.9% 1000ML 1,000 ML IV PRN (12:45)
[2017-06-23] MEDS ORDERED: HEPARIN SOD (PORCINE) 1000 UNIT/ML SDV IV PRN (12:45)
[2017-06-23] MEDS ORDERED: SODIUM CHLORIDE 0.9% 1000ML 2,000 ML ONE (12:57)
[2017-06-23] MEDS: HYDRALAZINE HCL 25 MG TAB PO SCH (13:48)
[2017-06-23] MEDS ORDERED: HEPARIN SOD (PORCINE) 1000 UNIT/ML SDV SQ ONE (14:00)
[2017-06-23] MEDS ORDERED: MANNITOL 25% 12.5GM/50 ML VIAL IV ONE (14:00)
[2017-06-23] MEDS ORDERED: SODIUM CHLORIDE 0.9% 1000ML 2,000 ML IV SCH (14:00)
--- NOTE | 2017-06-23 19:03 | Consultation ---
DATE OF CONSULTATION: June 23, 2017 REASON FOR CONSULTATION: This is a 57-year-old female with end-stage renal disease on hemodialysis. She was discharged from dialysis unit due to noncompliance. Currently, she is at [facility] but she has not shown up for treatment for a few weeks. The patient has been evicted from her apartment and does not have any transportation, refuses going to a [facility] and currently lives in a motel, according to her infested with mice, but does not want to leave and does not want to go to a [facility]. The patient has been admitted for dialysis. PAST MEDICAL HISTORY: 1. End-stage renal disease on hemodialysis. 2. History of urinary tract infection. 3. Degenerative joint disease. 4. Hyperlipidemia. 5. Coronary artery disease. FAMILY HISTORY: Negative. SOCIAL HISTORY: No smoking, no alcohol, no drugs. ALLERGIES: NONE. REVIEW OF SYSTEMS: No change from previous admission. PHYSICAL EXAMINATION VITAL SIGNS: Afebrile. Blood pressure 133/93. GENERAL: Alert, following commands. HEENT: Pupils reactive to light and accommodation. \E\ NECK: No JVD and no bruits. LUNGS: Rhonchi, no rales. HEART: Regular rate and rhythm. No S3, no S4. ABDOMEN: Nontender, nondistended. No hepatosplenomegaly. EXTREMITIES: No cyanosis, clubbing or edema. LABORATORY DATA: Hemoglobin 10, white count 7.9, sodium 136, potassium 4.2, creatinine 4.58, albumin 3.1. ASSESSMENT AND PLAN 1. End-stage renal disease on hemodialysis. The patient was dialyzed today, doing well. I discussed with her social situation. She continues to decline [facility] and wanting to stay in her motel. 2. Anemia of chronic disease, currently stable. 3. Coronary artery disease. 4. Noncompliance. Job#: [id number]
--- NOTE | 2017-06-23 19:41 | Diagnostic Imaging Report ---
EXAMINATION: SACRUM X-RAY, LUMBAR 3 VIEW 06/23/2017 5:57 PM COMPARISON: None INDICATION: Pain DISCUSSION: 3 views of the lumbar spine (AP, lateral, and L5-S1 view). 2 views of the sacrum/coccyx (AP and lateral) There are 5 nonrib-bearing lumbar type vertebrae. Severe disc space narrowing at the L5-S1 level with endplate sclerosis. Moderate facet arthrosis at L5-S1. Mild multilevel disc space narrowing at the other levels. AP view of the sacrum is obscured by a large amount of stool in the rectum. Otherwise no acute abnormality of the sacrum/coccyx. IMPRESSION: Multilevel degenerative changes of the lumbosacral spine. No acute abnormalities. Alejandro Schafer MD Signed by: Dr. Alejandro Schafer M.D. on 06/23/2017 7:37 PM
--- NOTE | 2017-06-23 20:01 | History and Physical ---
HISTORY OF PRESENT ILLNESS: This is one of many admissions for this patient. See multiple prior notes per electronic medical record. Each time the patient presents as now having decided not to attend dialysis for an extended period of time. She presents with fluid overload, high blood pressure, and shortness of breath. Multiple efforts have been made to oblige the patient in the past regarding compliance. At one time she was actually placed in a long term facility and even there she often refused to go to dialysis. She has seen psychiatric consultants while here and will do so again. PAST SURGICAL HISTORY: Includes coronary artery bypass graft. Patient declined cardiac reassessment when here several months ago. See notes per test manager then. Surgery also includes prior hysterectomy. AV access, right subclavian for dialysis. Thoracentesis. SOCIAL HISTORY: Prior smoker. Denies now. Denies alcohol. FAMILY HISTORY: Positive for hypertension and organic heart disease. ALLERGIES: THE PATIENT DENIES DRUG ALLERGIES. REVIEW OF SYSTEMS: Denies headache or visual change. Notes some shortness of breath and chest discomfort and generalized discomfort with chronic back pain. Denies vomiting or nausea at this time. Denies dysuria. She states she does make some urine. The patient is essentially sedentary and uses a cane because of occasional to severe back pain. PHYSICAL EXAMINATION VITAL SIGNS: Blood pressure elevated on admission, improved now to 138/80 post dialysis. Pulse is 90. Respiratory rate is 12 and not labored. Temperature 98. HEENT: Mild pallor. No icterus. Pupils round and reactive. Throat clear. NECK: Flexes. Carotids palpable. No bruit. Feel no goiter. PULMONARY: Auscultation generalized reduction in breath sounds. Sternotomy scar. Right subclavian dialysis line. CARDIAC: Cardiac sounds S1-2 distant. ABDOMEN: Soft. Bowel sounds normal. EXTREMITIES: Peripheral pulses are not palpable. Trace edema. DTRs depressed. Strength reduced. Straight leg raise negative. See also initial lab and chest x-ray reviewed. CURRENT IMPRESSION: 1. End-stage renal disease with noncompliance regarding dialysis, and presenting again with fluid overload and hypertension. Not as acidotic as previously. 2. Organic heart disease with coronary artery disease. 3. Degenerative joint disease with chronic back pain. 4. 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 See psychiatric note from May 16. 5. Anemia with hemoglobin on admission 10 and hemoglobin on June 23 8.6. No bleeding observed. Anemia secondary to renal failure. Consider erythropoietin. Rule out other etiology. See also initial and followup orders. Appreciate care by her sales development consultant in nephrology and psychiatry also. Job#: [id number]
[2017-06-23 21:09] VITALS: BP 137/88
--- NOTE | 2017-06-24 10:56 | Discharge Summary ---
The patient was hospitalized through the emergency room. See history and physical. She had not been attending dialysis and was hospitalized with high blood pressure and fluid overload. She was dialyzed. Database was monitored. The patient was kindly followed by her chief warden, Dr. Beltran. See notes. Her psychiatrist was also consulted. The patient markedly improved after dialysis, and was cleared for discharge by her chief warden thereafter. She was counseled regarding the need to attend hemodialysis 3 times weekly. She was encouraged regarding post discharge admission to a care home facility, which she refused. She was counseled regarding her meds as prior to admission. See list. See serial data documented per electronic medical record. FINAL IMPRESSION 1. End-stage renal failure. 2. Noncompliance attending dialysis with secondary hypertension and fluid overload. 3. Anemia secondary to chronic renal failure. 4. Degenerative joint disease with chronic low back pain. 5. She also had prior psychiatric impression of mood disorder and possible element of reduced mentation. LALITHA LEE MD Job#: [id number] [place]
--- OUTSIDE RECORDS SUMMARY | 2017-07-10 15:06 | XMS REPORT ---
Author Author [facility] Address Unknown Phone Unavailable Care Team Providers Care Traveling Operator Name Role Phone LALITHA LEE Unavailable Unavailable ZUHAIR BRENNAN Unavailable Unavailable ESTEFANI JOHNSON Unavailable Unavailable RUTH RIVAS Unavailable Unavailable NEHEMIAS JADE Unavailable Unavailable Problems This patient has no known problems. Allergies, Adverse Reactions, Alerts This patient has no known allergies or adverse reactions. Medications This patient has no known medications. Results Test Description Test Time Test Comments Text Results Atomic Results Result Comments SACRUM X-RAY [place] [address] Patient Name: NOEMI RODRIGUEZ MR #: [id number] : 1960 Age/Sex: 57/F Req #: [id number] Adm Physician: LALITHA LEE MD Ordered by: LALITHA LEE MD Report #: [id number] Location: [facility] Room/Bed: [place] [address] _ Procedure: [id number] DX/SACRUM X-RAY Exam Date: 06/23/17 Exam Time: 1914 REPORT STATUS: Signed EXAMINATION: SACRUM X -RAY, LUMBAR 3 VIEW 06/23/2017 5:57 PM COMPARISON: None INDICATION : Pain DISCUSSION: 3 views of the lumbar spine (AP, lateral, and L5- S1 view). 2 views of the sacrum/coccyx (AP and lateral) There are 5 nonrib-bearing lumbar type vertebrae. Severe disc space narrowing at the L5- S1 level with endplate sclerosis. Moderate facet arthrosis at L5-S1. Mild multilevel disc space narrowing at the other levels. AP view of the sacrum is obscured by a large amount of stool in the rectum. Otherwise no acute abnormality of the sacrum/coccyx. IMPRESSION: Multilevel degenerative changes of the lumbosacral spine. No acute abnormalities. Debora Schafer MD Signed by: Dr. Debora Schafer M.D. on 06/23/2017 7:37 PM Dictated By: DEBORA SCHAFER MD 36 Transcribed By: VAMSI on 06/23/171936 COPY TO: LALITHA LEE MD LUMBAR 3 VIEW [place] [address] Patient Name: NOEMI RODRIGUEZ MR #: [id number] : 1960 Age/Sex: 57/F Req #: [id number] Adm Physician: LALITHA LEE MD Ordered by: LALITHA LEE MD Report #: [id number] Location: [facility] Room/Bed: [place] [address] _ Procedure: [id number] DX/LUMBAR 3 VIEW Exam Date: 06/23/17 Exam Time: 1914 REPORT STATUS: Signed EXAMINATION: SACRUM X-RAY, LUMBAR 3 VIEW 06/23/2017 5:57 PM COMPARISON: None INDICATION : Pain DISCUSSION: 3 views of the lumbar spine (AP, lateral, and L5- S1 view). 2 views of the sacrum/coccyx (AP and lateral) There are 5 nonrib-bearing lumbar type vertebrae. Severe disc space narrowing at the L5- S1 level with endplate sclerosis. Moderate facet arthrosis at L5-S1. Mild multilevel disc space narrowing at the other levels. AP view of the sacrum is obscured by a large amount of stool in the rectum. Otherwise no acute abnormality of the sacrum/coccyx. IMPRESSION: Multilevel degenerative changes of the lumbosacral spine. No acute abnormalities. Debora Schafer MD Signed by: Dr. Debora Schafer M.D. on 06/23/2017 7:37 PM Dictated By: DEBORA SCHAFER MD 36 Transcribed By: VAMSI on 06/23/171936 COPY TO: LALITHA LEE MD CHEST SINGLE (NOT PORTABLE) [place] [address] Patient Name: NOEMI RODRIGUEZ MR #: [id number] : 1960 Age/Sex: 57/F Req #: [id number] Adm Physician: Ordered by: NEHEMIAS JADE MD Report #: [id number] Location: ER Room/Bed: ___ Procedure: [id number] DX/CHEST SINGLE (NOT PORTABLE) Exam Date: 06/22/17 Exam Time: 1950 REPORT STATUS: Signed EXAMINATION: CHEST SINGLE (NOT PORTABLE) INDICATION: Shortness of breath COMPARISON: 06/19/2017 FINDINGS: TUBES and LINES: Right IJ central line dialysis catheter is stable LUNGS: Lungs are not well inflated. There are bibasilar atelectasis. Significant interval improvement in interstitial edema with residual central vascular congestion. PLEURA: Small bilateral pleural effusions. HEART AND MEDIASTINUM: Cardiac size is moderately enlarged. There are atherosclerotic calcifications within the aorta. BONES AND SOFT TISSUES: No acute osseous lesion. Soft tissues are unremarkable. UPPER ABDOMEN: No free air under the diaphragm. IMPRESSION: Significant improvement in interstitial edema when compared with prior examination. However, residual edema and bilateral pleural effusions are present Signed by: Dr. Horacio Ba M.D. on 06/22/2017 8:16 PM Dictated By: HORACIO BAEZ MD 15 Transcribed By: VAMSI on 06/22/172015 COPY TO: NEHEMIAS JADE MD CHEST SINGLE (PORTABLE) [place] [address] Patient Name: NOEMI RODRIGUEZ MR #: [id number] : 1960 Age/Sex: 57/F Req #: [id number] Adm Physician: Ordered by: ZUHAIR BRENNAN MD Report #: [id number] Location: ER Room/Bed: Procedure: [id number] DX/CHEST SINGLE (PORTABLE) Exam Date: 06/19/17 Exam Time: 0545 REPORT STATUS: Signed EXAMINATION: CHEST SINGLE (PORTABLE) INDICATION: ESRD, overload at COMPARISON: 06/15/2017 and 05/14/2017 FINDINGS: TUBES and LINES: Right IJ dual-lumen dialysis catheter is stable in good position with tip at the right atrium. LUNGS: Lungs are not well inflated. There are bibasilar atelectasis. There is perihilar interstitial opacities, consistent with interstitial edema. PLEURA: Small bilateral pleural effusions HEART AND MEDIASTINUM: Cardiac size is moderately enlarged. There are atherosclerotic calcifications within the aorta. Midline sternotomy wires are stable. BONES AND SOFT TISSUES: No acute osseous lesion. Soft tissues are unremarkable. UPPER ABDOMEN: No free air under the diaphragm. IMPRESSION: Stable chest with evidence of pulmonary edema and bilateral pleural effusions. Signed by: Dr. Horacio Ba M.D. on 06/19/2017 6:27 AM Dictated By: HORACIO BAEZ MD 6 Transcribed By: VAMSI on 06/19/17626 COPY TO: ZUHAIR BRENNAN MD CHEST SINGLE (PORTABLE) [place] [address] Patient Name: NOEMI RODRIGUEZ MR #: [id number] : 1960 Age/Sex: 57/F Req #: [id number] Adm Physician: Ordered by: KJ GALLEGO NP Report #: [id number] Location: ER Room/Bed: Procedure: [id number] DX/CHEST SINGLE (PORTABLE) Exam Date: 06/15/17 Exam Time: 1702 REPORT STATUS: Signed EXAM: CHEST SINGLE (PORTABLE) DATE: 06/15/2017 3:32 PM INDICATION: Pain COMPARISON: 05/14/2017 FINDINGS: Sternotomy wires and right IJ dialysis catheter present. Cardiomegaly, moderate edema, and small to moderate bilateral pleural effusions present. IMPRESSION: Volume overload with bilateral pleural effusions. Superimposed pneumonia not excluded. Signed by: Dr. Andie Tim MD on 06/15/2017 5:10 PM Dictated By: ANDIE TIM MD 09 Transcribed By: VAMSI on 06/15/171709 COPY TO: KJ GALLEGO NP CHEST SINGLE (PORTABLE) [address] [place], [place] [address] Patient Name: NOEMI RODRIGUEZ MR #: [id number] : 1960 Age/Sex: 57/F Req #: [id number] Adm Physician: Ordered by: RUTH RIVAS MD Report #: [id number] Location: ER Room/Bed: Procedure: [id number] DX/CHEST SINGLE (PORTABLE) Exam Date: 05/14/17 Exam Time: 1010 REPORT STATUS: Signed PROCEDURE: A single AP view of the chest. COMPARISON: [facility], , CHEST SINGLE (PORTABLE), 03/26/2017, 15:18. INDICATIONS: SHORTNESS OF BREATH FINDINGS: Lines/tubes: Sternotomy wire sutures, mediastinal clips and a right IJ tunneled hemodialysis catheter appear stable. Lungs: Mild pulmonary edema compatible with fluid overload not significantly changed. Pleura: There are bilateral pleural effusions that are slightly smaller compared to the prior study. Heart and mediastinum : The heart is enlarged. Bones: No acute bony abnormality. IMPRESSION: Cardiomegaly with mild pulmonary edema and small bilateral pleural effusions. Nile Phillips D.O. Dictated by: Nile Phillips D.O. on 05/14/2017 at 11:18 Electronically approved by: Nile Phillips D.O. on 05/14/2017 at 11:18 Dictated By: NILE PHILLIPS DO Transcribed By: NASEEM on 05/14/171117 COPY TO: RUTH RIVAS MD CHEST SINGLE (PORTABLE) [place] [address] Patient Name: NOEMI RODRIGUEZ MR #: [id number] : 1960 Age/Sex: 56/F Req #: [id number] [facility] Physician: Ordered by: ESTEFANI JOHNSON MD Report #: [id number] Location: ER Room/Bed: Procedure: [id number] DX/CHEST SINGLE (PORTABLE) Exam Date: 03/26/17 Exam Time: 1515 REPORT STATUS: Signed PROCEDURE: A single AP view of the chest. COMPARISON: [facility], , CHEST 2 VIEWS, 02/25/2017, 20:06. INDICATIONS: SHORT OF BREATH FINDINGS: Lines/tubes: Right sided tunneled dialysis catheter with distal tips within the right atrium, unchanged. Lungs: Mild prominence of the pulmonary vasculature bilaterally. Mild bibasilar compressive atelectasis. Pleura: Interval increase in moderate volume pleural effusions. There is no pneumothorax. Heart and mediastinum: The cardiac silhouette is moderately enlarged. Bones: No acute bony abnormality. IMPRESSION: 1. Moderate bilateral pulmonary venous congestion. 2. Interval increase in bilateral pleural effusions. Yesi Pelaez M.D. Dictated by: eYsi Pelaez M.D. on 03/26 at 16:05 Electronically approved by: Yesi Pelaez M.D. on 03/26/2017 at 16:05 Dictated By: SIMEON PELAEZ MD, MD 04 Transcribed By : NASEEM on 03/26/171604 COPY TO: ESTEFANI JOHNSON MD SP LUMBAR, COMPLETE MIN 4VW [place] [address] Patient Name: NOEMI RODRIGUEZ MR #: [id number] : 1960 Age/Sex: 56/F Req #: [id number] [facility] Physician: LALITHA ELE MD Ordered by: LALITHA LEE MD Report #: [id number] Location: MED/SURG2 Room/Bed: [facility] Procedure: [id number] DX/SP LUMBAR, COMPLETE MIN 4VW Exam Date: 03/03/17 Exam Time: 1545 REPORT STATUS: Signed PROCEDURE: L-SPINE COMPLETE COMPARISON: None. INDICATIONS: LOWER BACK PAIN FINDINGS: There are 5 nonrib-bearing lumbar-type vertebral bodies. No acute, displaced fracture or subluxation. No pars interarticularis defects are identified on the oblique radiographs. There is advanced disc space narrowing, endplate sclerosis and marginal osteophytosis at L5-S1. The remaining intervertebral disc spaces are comparatively well maintained. The bones are diffusely osteopenic. Tip of a hemodialysis catheter is partially visualized in the lower chest. Atherosclerotic vascular calcifications. Radiopaque surgical clips and surgical material projects over the upper abdomen. CONCLUSION: No acute osseous abnormalities. Diffuse osteopenia with advanced degenerative disc disease at the lumbosacral junction. Dictated by: Leah Ferguson M.D. on 03/03/2017 at 17:31 Electronically approved by: Leah Ferguson M.D. on 03/03/2017 at 17:31 Dictated By: LEAH FERGUSON MD 30 Transcribed By: NASEEM on 03/03/171730 COPY TO: LALITHA LEE MD SACRUM X-RAY [place] [address] Patient Name: NOEMI RODRIGUEZ MR #: [id number] : 1960 Age/Sex: 56/F Req #: [id number] Adm Physician: LALITHA LEE MD Ordered by: LALITHA LEE MD Report #: [id number] Location: MED/SURG2 Room/Bed: 203-1 _ Procedure: [id number] DX/SACRUM X-RAY Exam Date: 03/03/17 Exam Time: 1545 REPORT STATUS: Signed PROCEDURE: SACRUM X- RAY INDICATION: Back pain COMPARISON: None. FINDINGS: No acute , displaced fracture or dislocation. The bones are diffusely osteopenic. No cortical step-off on the lateral radiograph. The sacral body and coccyx are obscured by rectal gas and stool frontal radiograph. The sacral foramina are intact superiorly. Sacroiliac joints are well-maintained. CONCLUSION: Diffuse osteopenia without acute osseous abnormality. Dictated by: Leah Ferguson M.D. on 03/03/2017 at 17:33 Electronically approved by: Leah Ferguson M.D. on 03/03/2017 at 17:33 Dictated By: LEAH FERGUSON MD 1733 Transcribed By: NASEEM on 03/03/17 173 COPY TO: LALITHA LEE MD CT BRAIN WO [place] [address] Patient Name: NOEMI RODRIGUEZ MR #: [id number] : 1960 Age/Sex: 56/F Req #: [id number] Adm Physician: Ordered by: ZUHAIR BRENNAN MD Report #: [id number] Location: ER Room/Bed: Procedure: [id number] CT/CT BRAIN WO Exam Date: 02/25/17 Exam Time: 2143 REPORT STATUS: Signed Exam: Head CT without contrast History: Headache, hypertension Comparison studies: None Technique: Axial images were obtained from the skull base to the vertex. Coronal and sagittal images reconstructed from the axial data. Intravenous contrast: None Findings: Exam is somewhat limited by artifacts related to patient motion. In spite of these limitations: Scalp: No abnormalities. Bones: No fractures, blastic or lytic lesions. Brain sulci: Moderately prominent for age. Ventricles: Moderate compensatory dilatation. No acute hydrocephalus. Extra-axial spaces: No masses, no fluid collection. Parenchyma: Chronic cortical-subcortical insults with encephalomalacia and gliosis centered along the bilateral gyri recti and left orbital frontal gyri of the bilateral frontal lobes are most likely sequela of previous trauma. Scattered ill-defined and confluent hypodensities throughout the supratentorial white matter are nonspecific but most compatible with chronic small vessel ischemic changes. There are chronic lacunar infarcts in the left superior putamen and in the roel. Sellar/suprasellar region: No abnormalities. Craniocervical junction: Patent foramen magnum. No Chiari one malformation. Incidental findings: Vascular calcifications in the carotid siphons and intradural vertebral arteries. IMPRESSION: Exam is limited by artifacts related to patient motion. In spite of this limitation there are no gross acute intracranial abnormalities. Chronic findings: 1. Moderate generalized volume loss for age. 2. Severe chronic small vessel ischemic changes with chronic lacunar infarcts in the left putamen and roel. 3. Chronic bilateral inferior frontal insults are most likely sequela previous trauma. Signed by: Dr. Leah Reina M.D. on 02/25/2017 10:17 PM Dictated By: LEAH ERINA MD 16 Transcribed By: VAMSI on 02/25/172216 COPY TO: ZUHAIR BRENNAN MD CHEST 2 VIEWS [facility] [address] [place] [address] Patient Name: NOEMI RODRIGUEZ MR #: [id number] : 1960 Age/Sex: 56/F Req #: [id number] Adm Physician: Ordered by: ZUHAIR BRENNAN MD Report #: [id number] Location: ER Room/Bed: Procedure: [id number] DX/CHEST 2 VIEWS Exam Date: 02/25/17 Exam Time: 2012 REPORT STATUS: Signed EXAM: CHEST 2 VIEWS DATE: 02/25/2017 7: 46 PM INDICATION: COMPARISON: 11/15/2016 FINDINGS: Sternotomy wires and right IJ dialysis catheter are stable. The cardiac silhouette is enlarged. There is mild perihilar bronchial wall thickening and hilar prominence. Small bilateral pleural effusions are present. IMPRESSION : Mild volume overload with small pleural effusions. Signed by: Dr. Andie Tim MD on 02/25/2017 8:41 PM Dictated By: ANDIE TIM MD 40 Transcribed By: VAMSI on 02/25/172040 COPY TO: ZUHAIR BRENNAN MD CHEST SINGLE (PORTABLE) [place] [address] Patient Name: NOEMI RODRIGUEZ MR #: [id number] : 1960 Age/Sex: 56/F Req #: [id number] Adm Physician: Ordered by: NEHEMIAS JADE MD Report #: [id number] Location: ER Room/Bed: ___ Procedure: [id number] DX/CHEST SINGLE (PORTABLE) Exam Date: Exam Time: REPORT STATUS: Signed EXAMINATION: CHEST SINGLE (PORTABLE) INDICATION: Shortness of breath COMPARISON: 11/17/2016 FINDINGS: TUBES and LINES: Right IJ dual- lumen dialysis catheter stable in position LUNGS: Lungs are not well inflated. There are bibasilar atelectasis. There is perihilar interstitial opacities, consistent with interstitial edema. PLEURA: Increasing bilateral pleural effusions. HEART AND MEDIASTINUM: Cardiac size is moderately enlarged. There are atherosclerotic calcifications within the aorta. Midline sternotomy wires are intact. BONES AND SOFT TISSUES: No acute osseous lesion. Soft tissues are unremarkable. UPPER ABDOMEN: No free air under the diaphragm. IMPRESSION: Recurrent pulmonary edema and worsening pleural effusions bilaterally Signed by: Dr. Horacio Ba M.D. on 01/17/2017 1:03 AM Dictated By: HORACIO BAEZ MD 2 Transcribed By: VAMSI on 01/17/17102 COPY TO: NEHEMIAS JADE MD
== END 2017-06-23 22:58 | disposition home or self-care (01) | DRG 640 ==
LOC: ER 19:10 → ERHOLD 22:21 → UNDOADMIN 22:21 → ERHOLD 22:23
PROVIDERS: ADMIT Internal Medicine; ATTEND Internal Medicine
DX: E87.70 Fluid overload, unspecified (principal); N18.6 End stage renal disease; I12.0 Hypertensive chronic kidney disease with stage 5 chronic kidney disease or end stage renal disease; Z99.2 Dependence on renal dialysis; D63.1 Anemia in chronic kidney disease; I25.10 Atherosclerotic heart disease of native coronary artery without angina pectoris; Z95.1 Presence of aortocoronary bypass graft; J44.9 Chronic obstructive pulmonary disease, unspecified; B18.2 Chronic viral hepatitis C; Z91.15 Patient's noncompliance with renal dialysis; M19.90 Unspecified osteoarthritis, unspecified site; M54.5 Low back pain; E78.5 Hyperlipidemia, unspecified; F39 Unspecified mood [affective] disorder; F09 Unspecified mental disorder due to known physiological condition; Z87.891 Personal history of nicotine dependence
CPT/HCPCS: 36415; 71045; 72100; 72220; 80053; 82550; 82553; 83880; 84484; 85025; 85610; 85730; 86704; 86705; 93005; 99285; J1644; J2150; J2405; J7030

== ENCOUNTER 2017-07-18 12:05 | Inpatient (IN) | payer MEDICARE, OTHER ==
[~2017-07-18] VITALS: Ht 157.5 cm; Wt 42.2 kg
--- OUTSIDE RECORDS SUMMARY | 2017-07-18 12:07 | XMS REPORT | Continuity of Care Document ---
Author Author [facility] Organization [facility] Address [address] [place] [address] Phone Unavailable Care Team Providers Care Drug Clerk Name Role Phone LALITHA LEE MD PCP Insurance Providers Guarantor Noemi Rodriguez Address [address] [place] [address] [facility] Policy Number [id number] Subscriber's Name Noemi Rodriguez Relationship 18 Self / Same As Patient Group Number [id number] Group Name UNEMPLOYED Effective Date 17 Advance Directives Directive Response Recorded Date/Time Does the patient have an advance directive? No 05/14/17 5:30pm If yes, is advance directive on file with [facility]? No 05/14/17 5:30pm If not on file with [facility] will patient provide a copy? Yes 06/22/17 7:18pm Do you have a Directive to Physician? No 06/22/17 7:18pm Do you have a Medical Power of Business Specialist? No 06/22/17 7:18pm Do you have an out of hospital Do Not Resuscitate Order? No 06/22/17 7:18pm Do you have any special needs we should be aware of? No 06/22/17 7:18pm Do you have a support person here with you today? Yes 06/22/17 7:18pm Did patient receive Notice of Privacy Practices? Yes 06/22/17 7:18pm Did patient receive patient rights and responsibilities? Yes 06/22/17 7:18pm Problems Medical Problem Onset Date Status Anemia 04/18/2015 Acute Chest pain Unknown ESRD (end stage renal disease) on dialysis Unknown HTN (hypertension) Unknown Hypertensive urgency Unknown Non-compliance with renal dialysis Unknown Pulmonary edema 04/18/2015 Acute Renal failure Unknown Volume overload Unknown Medications Current Home Medications Medication Dose Units Route Directions Days Qty Instructions Start Date Combivent 1 Inh Oral Twice A Day Hydralazine Hcl 25 Mg Tab 100 Mg Oral Three Times A Day Tramadol Hcl (Ultram) 50 Mg Tablet 50 Mg Oral Every 4 Hours as needed for Pain Trazodone Hcl 50 Mg Tablet 50 Mg Oral Bedtime as needed for Insomnia 30 Tab Social History Social History Problem Response Recorded Date/Time Onset Date Status Hx Psychiatric Problems No 05/14/2017 5:30pm Not Applicable Not Applicable Hx Eating Disorder No 05/14/2017 5:30pm Not Applicable Not Applicable Hx Substance Use Disorder No 05/14/2017 5:30pm Not Applicable Not Applicable Hx Depression No 05/14/2017 5:30pm Not Applicable Not Applicable Hx Alcohol Use N - denies 05/14/2017 5:30pm Not Applicable Not Applicable Hx Substance Use Treatment N - 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 Plan of Care Discharge Date 06/23/17 10:58pm Disposition HOME, SELF-CARE Instructions/Education Provided Hypertension Prescriptions See Medication Section Functional Status No functional status information available. Allergies, Adverse Reactions, Alerts No known allergies. Immunizations No immunization information available. Vital Signs Acute Vital Signs Vital Response Date/Time Temperature (Fahrenheit) 99.0 degrees F (97.6 - 99.5) 06/23/2017 9:09pm Pulse Pulse Rate (adult) 72 bpm (60 - 90) 06/23/2017 9:09pm Respiratory Rate 18 bpm (12 - 24) 06/23/2017 9:09pm Blood Pressure 137/88 mm Hg 06/23/2017 9:09pm Height 5 ft 2 in 06/22/2017 7:38pm Weight 93 lb 06/22/2017 7:38pm Body Mass Index 17.0 kg/m^2 06/22/2017 7:38pm Results Laboratory Results Test Name Result Units Flags Reference Collection Date/Time Result Date/ Time Comments Erythrocyte Sedimentation Rate 15 mm/hr 0-20 11/15/2016 9:50am 2016 10:44am D-Dimer Quantitative (PE/DVT) 2170 ng/mL H 0-400 11/15/2016 9:50am 11/15 10:11am As with all in vitro diagnostic tests, the test results should be interpreted by the physician in conjunction with clinical findings and other test results. Test results are reported in NEW D-dimer units(ug/mLFEU). Iron Level 23 ug/dL L 50-170 11/17/2016 6:46am 11/17/2016 8:00am Ferritin 45.25 ng/mL 4.63-204.00 11/17/2016 6:46am 11/17/2016 8:19am Triglycerides Level 51 MG/DL 0-149 11/16/2016 6:00am 11/16/2016 7:01am Cholesterol Level 146 MD/DL 0-199 11/16/2016 6:00am 11/16/2016 7:01am Less than 200 mg/dL Low Risk 201 - 239 mg/dL Borderline Risk 240 mg/dl and greater High Risk LDL Cholesterol 84 MG/DL 60-130 11/16/2016 6:00am 11/16/2016 7:01am HDL Cholesterol 52 MG/DL 40-60 11/16/2016 6:00am 11/16/2016 7:01am Cholesterol/HDL Ratio 2.8 L 3.0-3.6 11/16/2016 6:00am 11/16/2016 7: 01am Amylase Level 41 U/L 25-125 11/15/2016 2:30am 11/15/2016 3:10am Thyroid Stimulating Hormone (TSH) 3.845 uIU/mL 0.350-4.940 11/15/2016 2: 30am 11/15/2016 3:34am Hepatitis C RNA Quantitative (PCR) SEE REPORT 11/15/2016 6:15pm 03/2017 5:41pm HCV RT-PCR, Quant (Non-Graph) Hepatitis C Quantitation HCV Not Detected IU/mL 01 . 01 Test Information: 01 The quantitative range of this assay is 15 IU/mL to 100 million IU/mL. Testing performed by: [address] [id number] Dir. Duncan Du MD Rheumatoid Factor 10.6 IU/mL 0.0-13.9 11/15/2016 9:50am 11/16/2016 7: 49am Performed at: [address] [id number] Roll Contour Grinder: Kiel Bunch MD, Phone: [phone] Urine Amorphous Sediment MANY H FEW 01/17/2017 12:30am 01/17/2017 1: 44am Hepatitis Be Antibody Negative Negative 01/17/2017 2:11pm 01/21/2017 11:10am Performed at: [address] [id number] Roll Contour Grinder: Duncan Du MD, Phone: [phone] Bedside Glucose 135 mg/dL H 70-120 02/26/2017 8:54pm 02/26/2017 9:03pm Meter ID: [id number] Hemoglobin A1c Percent 5.2 % 4.0-7.0 02/27/2017 10:17am 02/27/2017 10: 46am Vancomycin Level Trough 6.0 ug/mL 5.0-10.0 02/28/2017 6:50pm 2016 7:11pm Hepatitis B Surface Antibody, Quant <3.1 mIU/mL L Immunity>9.9 2016 7:55am 05/16/2017 9:41am Status of Immunity Anti- HBs Level Inconsistent with Immunity 0.0 - 9.9 Consistent with Immunity >9.9 Alkaline Phosphatase 302 IU/L H 39-117 05/15/2017 7:55am 05/18/2017 10: 12pm Alkaline Phosphatase Iso-Intestine 2 % 0-18 05/15/2017 7:55am 2016 10:12pm Performed at: - [facility] [address] [id number] Roll Contour Grinder: Kiel Bunch MD, Phone: [phone] Performed at: - [facility] [id number] Roll Contour Grinder: Duncan Du MD, Phone: [phone] Alkaline Phosphatase Iso-Bone 27 % 14-68 05/15/2017 7:55am 05/18/2017 10:12pm Alkaline Phosphatase Iso-Liver 71 % 18-85 05/15/2017 7:55am 05/18/2017 10:12pm Urine Color YELLOW YELLOW 06/15/2017 4:49pm 06/15/2017 5:06pm Urine Clarity CLEAR CLEAR 06/15/2017 4:49pm 06/15/2017 5:06pm Urine Specific Patterson 1.020 1.010-1.025 06/15/2017 4:49pm 2017 5:06pm Urine pH 6 5 - 7 06/15/2017 4:49pm 06/15/2017 5:06pm Urine Leukocyte Esterase NEGATIVE NEGATIVE 06/15/2017 4:49pm 2017 5:06pm Urine Nitrite NEGATIVE NEGATIVE 06/15/2017 4:49pm 06/15/2017 5:06pm Urine Protein 2+ H NEGATIVE 06/15/2017 4:49pm 06/15/2017 5:06pm Urine Glucose (UA) NEGATIVE NEGATIVE 06/15/2017 4:49pm 06/15/2017 5: 06pm Urine Ketones NEGATIVE NEGATIVE 06/15/2017 4:49pm 06/15/2017 5:06pm Urine Urobilinogen 0.2 mg/dL 0.2 - 1 06/15/2017 4:49pm 06/15/2017 5: 06pm Urine Bilirubin NEGATIVE NEGATIVE 06/15/2017 4:49pm 06/15/2017 5: 06pm Urine Blood NEGATIVE NEGATIVE 06/15/2017 4:49pm 06/15/2017 5:06pm Urine WBC NONE /HPF 0-5 06/15/2017 4:49pm 06/15/2017 5:15pm Urine RBC NONE /HPF 0-5 06/15/2017 4:49pm 06/15/2017 5:15pm Urine Bacteria NONE /HPF NONE 06/15/2017 4:49pm 06/15/2017 5:15pm Urine Epithelial Cells FEW /LPF NONE 06/15/2017 4:49pm 06/15/2017 5: 15pm Lipase 45 U/L 8-78 06/15/2017 4:43pm 06/15/2017 5:36pm Hepatitis B Surface Antigen Negative Negative 06/15/2017 4:48pm 06/17 8:48pm Performed at: HD - [facility] [address] [id number] Roll Contour Grinder: Kiel Bunch MD, Phone: [phone] Magnesium Level 2.5 MG/DL H 1.3-2.1 06/19/2017 5:45am 06/19/2017 6:29am White Blood Count 7.52 x10e3/uL 4.8-10.8 06/23/2017 5:00am 06/23/2017 5 :25am Red Blood Count 3.01 x10e6/uL L 3.6-5.1 06/23/2017 5:00am 06/23/2017 5: 25am Hemoglobin 8.6 g/dL L 12.0-16.0 06/23/2017 5:00am 06/23/2017 5:25am Hematocrit 27.1 % L 34.2-44.1 06/23/2017 5:00am 06/23/2017 5:25am Mean Corpuscular Volume 90.0 fL 81-99 06/23/2017 5:00am 06/23/2017 5: 25am Mean Corpuscular Hemoglobin 28.6 pg 28-32 06/23/2017 5:00am 06/23/2017 5:25am Mean Corpuscular Hemoglobin Concent 31.7 g/dL 31-35 06/23/2017 5:00am 06/23/2017 5:25am Red Cell Distribution Width 16.8 % H 11.7-14.4 06/23/2017 5:00am 2017 5:25am Platelet Count 199 x10e3/uL 140-360 06/23/2017 5:00am 06/23/2017 5: 25am Neutrophils (%) (Auto) 77.5 % 38.7-80.0 06/23/2017 5:00am 06/23/2017 5: 25am Lymphocytes (%) (Auto) 9.7 % L 18.0-39.1 06/23/2017 5:00am 06/23/2017 5: 25am Monocytes (%) (Auto) 9.3 % 4.4-11.3 06/23/2017 5:00am 06/23/2017 5: 25am Eosinophils (%) (Auto) 2.7 % 0.0-6.0 06/23/2017 5:00am 06/23/2017 5: 25am Basophils (%) (Auto) 0.4 % 0.0-1.0 06/23/2017 5:00am 06/23/2017 5:25am IM GRANULOCYTES % 0.4 % 0.0-1.0 06/23/2017 5:00am 06/23/2017 5:25am Neutrophils # (Auto) 5.8 2.1-6.9 06/23/2017 5:00am 06/23/2017 5:25am Lymphocytes # (Auto) 0.7 L 1.0-3.2 06/23/2017 5:00am 06/23/2017 5: 25am Monocytes # (Auto) 0.7 0.2-0.8 06/23/2017 5:00am 06/23/2017 5:25am Eosinophils # (Auto) 0.2 0.0-0.4 06/23/2017 5:00am 06/23/2017 5:25am Basophils # (Auto) 0.0 0.0-0.1 06/23/2017 5:00am 06/23/2017 5:25am Absolute Immature Granulocyte (auto 0.03 x10e3/uL 0-0.1 06/23/2017 5: 00am 06/23/2017 5:25am Prothrombin Time 12.4 seconds 11.9-14.5 06/22/2017 7:38pm 06/22/2017 8: 21pm Prothromb Time International Ratio 0.88 06/22/2017 7:38pm 2017 8:21pm Oral Anticoagulant Therapy INR Values: 1. Low Intensity Therapy 1.5 - 2.0 2. Moderate Intensity Therapy 2.0 - 3.0 3. High Intensity Therapy(1) 2.5 - 3.5 4. High Intensity Therapy(2) 3.0 - 4.0 5. Panic Value INR > 5.0 Activated Partial Thromboplast Time 30.7 seconds 23.8-35.5 06/22/2017 7: 38pm 06/22/2017 8:21pm Sodium Level 136 mmol/L 136-145 06/23/2017 5:00am 06/23/2017 5:55am Potassium Level 4.2 mmol/L 3.5-5.1 06/23/2017 5:00am 06/23/2017 5:55am Chloride Level 100 mmol/L 98-107 06/23/2017 5:00am 06/23/2017 5:55am Carbon Dioxide Level 22 mmol/L 22-29 06/23/2017 5:00am 06/23/2017 5: 55am Anion Gap 18.2 mmol/L H 8-16 06/23/2017 5:00am 06/23/2017 5:55am Blood Urea Nitrogen 55 mg/dL H 7-26 06/23/2017 5:00am 06/23/2017 5:55am Creatinine 4.58 mg/dL H 0.57-1.11 06/23/2017 5:00am 06/23/2017 5:55am BUN/Creatinine Ratio 12 6-25 06/23/2017 5:00am 06/23/2017 5:55am Estimat Glomerular Filtration Rate 10 ML/MIN L 60- 06/23/2017 5:00am 5:55am Ranges were taken from the National Kidney Disease Education Program and the National Kidney Foundation literature. Reference ranges: 60 or greater: Normal 16-59 (for 3 consecutive months): Chronic kidney disease 15 or less: Kidney failure Glucose Level 88 mg/dL 74-118 06/23/2017 5:00am 06/23/2017 5:55am Calcium Level 7.8 mg/dL L 8.4-10.2 06/23/2017 5:00am 06/23/2017 5:55am Total Bilirubin 0.7 mg/dL 0.2-1.2 06/23/2017 5:00am 06/23/2017 5:55am Aspartate Amino Transf (AST/SGOT) 19 IU/L 5-34 06/23/2017 5:00am 2017 5:55am Alanine Aminotransferase (ALT/SGPT) 10 IU/L 0-55 06/23/2017 5:00am 5:55am Total Protein 7.0 g/dL 6.5-8.1 06/23/2017 5:00am 06/23/2017 5:55am Albumin 3.1 g/dL L 3.5-5.0 06/23/2017 5:00am 06/23/2017 5:55am Globulin 3.9 g/dL H 2.3-3.5 06/23/2017 5:00am 06/23/2017 5:55am Albumin/Globulin Ratio 0.8 0.8-2.0 06/23/2017 5:00am 06/23/2017 5: 55am Alkaline Phosphatase 244 IU/L H 40-150 06/23/2017 5:00am 06/23/2017 5: 55am B-Type Natriuretic Peptide 4870.0 pg/mL H 0-100 06/22/2017 7:38pm 2017 8:24pm Creatine Kinase 154 IU/L 29-168 06/22/2017 7:38pm 06/22/2017 8:24pm Creatine Kinase MB 6.80 ng/mL H 0.00-5.00 06/22/2017 7:38pm 06/22/2017 8 :34pm Troponin I 0.274 ng/mL 0-0.300 06/22/2017 7:38pm 06/22/2017 8:34pm Hepatitis B Core Total Antibody Negative Negative 06/23/2017 10:48am 06/24/2017 8:34am Hepatitis B Core IgM Antibody Negative Negative 06/23/2017 10:48am 8:34am Performed at: - [facility] [address] [id number] Roll Contour Grinder: Kiel Bunch MD, Phone: [phone] Microbiology Results Procedure Source Organism/Result Collection Date/Time Result Date/Time Result Status Blood Culture Blood NO GROWTH AFTER 5 DAYS, FINAL REPORT 11/15/2016 2:30am 11/20/2016 2:43am Final Urine Culture Urine,Clean Catch ENTEROCOCCUS FAECALIS 02/25/2017 10:50pm 02/28/2017 11:09am Final ESCHERICHIA COLI-ESBL 02/25/2017 10:50pm 02/28/2017 11:09am Final PROTEUS MIRABILIS 02/25/2017 10:50pm 02/28/2017 11:09am Final Urine Culture Urine,Catheterized ESCHERICHIA COLI 03/26/2017 3:00pm 2016 7:41am Final PROTEUS MIRABILIS 03/26/2017 3:00pm 03/29/2017 7:41am Final [place] [address] Patient Name: NOEMI RODRIGUEZ MR # :[id number] : 1960 Age/Sex: 57/F Admit Physician: Christos #: [id number] Admit Date: Location/Room/Bed: ER- Discharge Date: 06/23/17 Report: Discharge Summary The patient was hospitalized through the emergency room. See history and physical. She had not been attending dialysis and was hospitalized with high blood pressure and fluid overload. She was dialyzed. Database was monitored. The patient was kindly followed by her heart nurse, Dr. Beltran. See notes. Her psychiatrist was also consulted. The patient markedly improved after dialysis, and was cleared for discharge by her heart nurse thereafter. She was counseled regarding the need to attend hemodialysis 3 times weekly. She was encouraged regarding post discharge admission to a assisted facility, which she refused. She was counseled regarding her meds as prior to admission. See list. See serial data documented per electronic medical record. FINAL IMPRESSION 1. End-stage renal failure. 2. Noncompliance attending dialysis with secondary hypertension and fluid overload. 3. Anemia secondary to chronic renal failure. 4. Degenerative joint disease with chronic low back pain. 5. She also had prior psychiatric impression of mood disorder and possible element of reduced mentation. LALITHA LEE MD Job#: [id number] RI Dictated By: LALITHA LEE MD Transcribed By: EDS on 06/24/17 <Electronically signed by LALITHA LEE MD>06/30/[id number] Procedures Procedure Status Date Provider(s) PERFORMANCE OF URINARY FILTRATION, MULTIPLE Completed 11/16/16 TRISTIAN PATE MD PERFORMANCE OF URINARY FILTRATION, MULTIPLE Completed 01/17/17 TRISTIAN PATE MD PERFORMANCE OF URINARY FILTRATION, <6 HRS/DAY Completed 02/26/17 ITZEL SILVERMAN Unsched dialysis ESRD pt hos Completed 03/26/17 TRISTIAN PATE MD X-ray of chest, two views Active 11/15/16 ZUHAIR BRENNAN MD X-ray of chest, two views Active 11/17/16 LALITHA LEE MD X-ray of chest, two views Active 02/25/17 ZUHAIR BRENNAN MD Computed tomography of brain without radiopaque contrast Active 02/25/17 ZUHAIR BRENNAN MD X-ray of chest, single view Active 06/22/17 NEHEMIAS JADE MD Encounters Encounter Location Arrival/Admit Date Discharge/Depart Date Attending Provider Discharged Inpatient [facility] 06/22/17 10:23pm 10:58pm LALITHA LEE MD Departed Emergency Room [facility] 06/19/17 5:20am 6:24am ZUHAIR BRENNAN MD Discharged Inpatient (obs) [facility] 06/15/17 8:18pm 7:55am LALITHA LEE MD Discharged Inpatient [facility] 05/14/17 1:50pm 05/16/17 6:56pm LALITHA LEE MD Discharged Inpatient (obs) [facility] 03/26/17 7:42pm 12:16pm LALITHA LEE MD Discharged Inpatient [facility] 03/01/17 6:47pm 03/04/17 8:25pm LALITHA LEE MD Discharged Inpatient [facility] 01/17/17 1:56am 01/19/17 10:50am LALITHA LEE MD Discharged Inpatient [facility] 11/16/16 7:27am 11/21/16 11:20am LALITHA LEE MD
[2017-07-18] MEDS ORDERED: ASPIRIN 81 MG CHEW TAB PO ONE (12:30)
--- NOTE | 2017-07-18 13:34 | Diagnostic Imaging Report ---
PROCEDURE:CHEST SINGLE (PORTABLE) TECHNIQUE:Portable AP chest INDICATION:Shortness of breath COMPARISON:None. FINDINGS: Right internal jugular tunneled dialysis catheter tips in the right atrium. Cardiomegaly, small pleural effusions, central vascular congestion and interstitial edema. Postoperative sequela of sternotomy; intact midline wires. Intact skeleton. CONCLUSION: Volume overload, with cardiomegaly, pulmonary edema and small pleural effusions. Dictated by: Markus Du M.D. on 07/18/2017 at 13:33 Electronically approved by: Markus Du M.D. on 07/18/2017 at 13:33
[2017-07-18 16:49] LABS: BASOPHILS # (AUTO) 0.1 (0.0-0.1); BASOPHILS % 0.3 % (0.0-1.0); LYMPHOCYTES # (AUTO) 0.2 (1.0-3.2); LYMPHOCYTES % 0.8 % (18.0-39.1); MEAN CORPUSCULAR HEMOGLOBIN 28.8 pg (28-32); MEAN CORPUSCULAR HGB CONC 32.4 g/dL (31-35); MEAN CORPUSCULAR VOLUME 88.7 fL (81-99); MONOCYTES # (AUTO) 0.8 (0.2-0.8); MONOCYTES % 3.1 % (4.4-11.3); NEUTROPHILS # (AUTO) 25.5 (2.1-6.9); NEUTROPHILS % 95.2 % (38.7-80.0); PLATELET COUNT 141 x10e3/uL (140-360); RED BLOOD COUNT 4.17 x10e6/uL (3.6-5.1); RED CELL DISTRIBUTION WIDTH 18.4 % (11.7-14.4)
[2017-07-18 17:08] LABS: ALBUMIN 3.1 g/dL (3.5-5.0); ALBUMIN/GLOBULIN RATIO 0.7 (0.8-2.0); ANION GAP 26.3 mmol/L (8-16); CALCIUM 8.2 mg/dL (8.4-10.2); CREATININE, SERUM 6.92 mg/dL (0.57-1.11); POTASSIUM 4.3 mmol/L (3.5-5.1)
[2017-07-18] MEDS ORDERED: CEFTRIAXONE SOD 1 GM VIAL IV ONE (17:15)
[2017-07-18 17:17] LABS: CREATINE KINASE MB 10.4 ng/mL (0-5.0)
[2017-07-18 17:36] LABS: MAGNESIUM 2.3 MG/DL (1.3-2.1); PHOSPHORUS 6.5 MG/DL (2.3-4.7)
[2017-07-18] MEDS ORDERED: SODIUM CHLORIDE FLUSH 10 ML SYR INJ PRN (18:00)
--- NOTE | 2017-07-18 18:09 | History and Physical ---
The patient is being hospitalized through the emergency room where she presented with complaints of generalized pain. She has had chronic back pain. She also states she has felt she has been edematous. She states she has been dialyzed only once since her last visit here. The patient has had chronic recurrent admissions here. She usually comes here instead of dialysis and rarely attends her outpatient dialysis sessions. She states she only tolerates dialysis for 3 hours at a time. History has included recurrent fluid overload secondary to noncompliance as above. Hypertension. Degenerative joint disease. The patient has had prior coronary artery bypass graft. She has been declining cardiac reassessment for a year. Prior surgery: Hysterectomy. AV access. Right subclavian for dialysis. Prior thoracentesis. Prior smoker. Denies smoking now. Denies alcohol use. Family history is positive for hypertension and organic heart disease. THE PATIENT KNOWS OF NO DRUG ALLERGIES. Denies headache or visual change. Chronic shortness of breath with recent exacerbation. O2 sat per ER was 88% and improved with O2. Denies current chest pain. Denies vomiting, nausea or diarrhea. No dysuria. She states she makes some urine. She uses a cane because of her occasional back pain. She is quite sedentary. PHYSICAL EXAMINATION: VITAL SIGNS: Temperature is 97.7. Pulse 96 and regular. Respiratory rate 21. BP 141/98. On O2, O2 sat is 96%. HEENT: Minimal pallor. No icterus. Pupils round, react. Throat clear. NECK: Flexes. PULMONARY AUSCULTATION: Reduced breath sounds in bases. CHEST: Cardiac sounds S1 and S2 are soft. Right subclavian dialysis line. ABDOMEN: Soft. Bowel sounds normal. EXTREMITIES: Peripheral pulses are not palpable. Trace edema. DTRs reduced. Strength reduced. Straight leg raise negative. SKIN: No embolic phenomena seen on skin and nail exam at this time. White count is markedly elevated today at 26,810 with a left shift. Hemoglobin is 12 grams. Platelet count 141,000. BUN 87 and creatinine 6.92. CO2 is 10. Potassium is 4.3. AST elevated at 47. Alk phosphatase 251, high. CPK 176. Troponin I is 0.36, which is within normal limits. ER chest x-ray with volume overload and cardiomegaly, small pleural effusions, pulmonary edema. CURRENT IMPRESSION: 1. Noncompliance. 2. End-stage renal disease with marked acidosis and with fluid overload at this time as the patient does not go to dialysis. 3. Degenerative joint disease with chronic pain. 4. Coronary artery disease with prior graft bypass. 5. Leukemoid reaction as above with external right line for dialysis. Rule out line sepsis. Rule out other etiology for leukemoid reaction. 6. Mood disorder. 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 Current plan is to consult her major appliance assembly supervisor to arrange dialysis as soon as able. Control pain. Control blood pressure. Assess leukemoid reaction. See also initial and followup orders. Job#: [id number] EV
[2017-07-18 18:23] LABS: HYPOCHROMASIA MODERATE; LYMPHOCYTES % (MANUAL) 3 % (19-48); MONOCYTES % (MANUAL) 4 % (3.4-9.0); NEUTROPHILS % (MANUAL) 93 % (40-74); PLATELET ESTIMATE SLIGHTLY DECREASED; RBC MORPHOLOGY COMMENT NORMAL
[2017-07-18 19:49] LABS: B-TYPE NATRIURETIC PEPTIDE2 10400.7 pg/mL (0-100)
[2017-07-18 20:40] VITALS: BP_SYST 158; BP_SYST 163; BP_DIAS 107; BP_DIAS 120
--- NOTE | 2017-07-18 21:06 | Consultation ---
DATE OF CONSULTATION: July 18, 2017 This is a noncompliant 57-year-old female with end-stage renal disease on hemodialysis. The patient has not been to any dialysis unit. Her last dialysis unit was at [place]. She has been fired from multiple dialysis units. The patient has been evicted from her apartment. She lives in a motel. She states she has no transportation so she does not go to any dialysis unit despite multiple attempts to set her up with unit. The patient remains very noncompliant. Currently, she is here with severe edema and severe metabolic acidosis. PAST MEDICAL HISTORY: 1. ESRD. 2. History of UTI. 3. Degenerative joint disease. 4. Hyperlipidemia. 5. CAD. FAMILY HISTORY: Negative. SOCIAL HISTORY: No smoking, no alcohol, no drugs. FAMILY HISTORY: Negative. ALLERGIES: NONE. REVIEW OF SYSTEMS: No change from her last admission. Positive shortness of breath. Positive weakness. Positive generalized pain. The patient continues with the same self destructive behavior. PHYSICAL EXAMINATION GENERAL: Alert, following commands. HEENT: Pupils equal, reactive to light and accommodation. LUNGS: Rales and expiratory wheezes. HEART: Tachycardiac. No S3, no S4. ABDOMEN: Nontender, nondistended. No hepatosplenomegaly. EXTREMITIES: Positive anasarca. LABORATORY DATA: CO2 of 10. Sodium 135. BUN 87. Creatinine 6.9. ASSESSMENT AND PLAN 1. End-stage renal disease with severe edema. The patient will be dialyzed today and tomorrow. 2. Noncompliance. 3. Anemia of chronic disease, currently stable with hemoglobin of 12. 4. Coronary artery disease. In short, this is a noncompliant patient who does not go to dialysis when she is home, and has been rejected by all dialysis units since she does not comply and she has no will to comply. Job#: [id number]
[2017-07-18] MEDS ORDERED: SODIUM CHLORIDE 0.9% 1000ML 2,000 ML ONE (21:48)
[2017-07-18] MEDS ORDERED: MANNITOL 25% 12.5GM/50 ML VIAL IV PRN (22:00)
[2017-07-18] MEDS ORDERED: HEPARIN SOD (PORCINE) 1000 UNIT/ML SDV IV PRN ×2 (22:00)
[2017-07-18] MEDS ORDERED: SODIUM CHLORIDE 0.9% 1000ML 2,000 ML IV PRN (22:00)
[2017-07-19] VITALS: BP_SYST 113; BP_SYST 161; BP_DIAS 131; BP_DIAS 92
[2017-07-19 04:00] VITALS: BP 127/89
[2017-07-19] MEDS: TRAMADOL HCL 50 MG TAB PO PRN ×3 (06:05→20:30)
--- NOTE | 2017-07-19 06:48 | Diagnostic Imaging Report ---
CHEST SINGLE (PORTABLE), 07/19/2017 7:00 AM Technique: CHEST SINGLE (PORTABLE) Comparison: 06/22/2017 Clinical history: Shortness of breath Findings: See Impression Impression: Markedly limited by positioning with patient's head overlying the right upper lung 1. Lines/Tubes: Right dialysis catheter tip overlies the inferior right atrium. 2. Stable cardiomediastinal silhouette poststernotomy. 3. Small effusions with associated atelectasis and/or edema. Signed by: Dr Jenna Cash MD on 07/19/2017 6:45 AM
[2017-07-19 07:49] VITALS: BP 143/94
[2017-07-19 08:12] LABS: BASOPHILS # (AUTO) 0.1 (0.0-0.1); BASOPHILS % 0.2 % (0.0-1.0); HEMATOCRIT 33.4 % (34.2-44.1); HEMOGLOBIN 11.3 g/dL (12.0-16.0); LYMPHOCYTES # (AUTO) 0.2 (1.0-3.2); LYMPHOCYTES % 0.7 % (18.0-39.1); MEAN CORPUSCULAR HEMOGLOBIN 28.8 pg (28-32); MEAN CORPUSCULAR HGB CONC 33.8 g/dL (31-35); MEAN CORPUSCULAR VOLUME 85.2 fL (81-99); MONOCYTES # (AUTO) 0.8 (0.2-0.8); MONOCYTES % 3.5 % (4.4-11.3); NEUTROPHILS # (AUTO) 21.6 (2.1-6.9); PLATELET COUNT 105 x10e3/uL (140-360); RED BLOOD COUNT 3.92 x10e6/uL (3.6-5.1)
[2017-07-19 08:38] LABS: ANION GAP 24.3 mmol/L (8-16); CALCIUM 7.9 mg/dL (8.4-10.2); CREATININE, SERUM 5.4 mg/dL (0.57-1.11); PHOSPHORUS 5.1 MG/DL (2.3-4.7); POTASSIUM 3.3 mmol/L (3.5-5.1)
[2017-07-19 10:11] LABS: BAND NEUTROPHILS % (MANUAL) 6 %; LYMPHOCYTES % (MANUAL) 2 % (19-48); MONOCYTES % (MANUAL) 4 % (3.4-9.0); NEUTROPHILS % (MANUAL) 88 % (40-74); PLATELET ESTIMATE SLIGHTLY DECREASED; PLATELET MORPHOLOGY COMMENT NORMAL; RBC MORPHOLOGY COMMENT NORMAL
[2017-07-19 11:34] VITALS: BP 133/89
[2017-07-19] MEDS: HYDRALAZINE HCL 25 MG TAB PO SCH ×2 (15:00→22:06)
--- NOTE | 2017-07-19 15:26 | Cardiology Report ---
DATE OF STUDY: July 19, 2017 ECHOCARDIOGRAM ATTENDING PHYSICIAN: Dr. Braulio Frey. M-MODE: Dilated left atrium. Left ventricular hypertrophy. Diminished left ventricular contractility, especially the septum. Normal mitral and aortic valves. Pleural effusion. SECTOR SCAN: Dilated left and right atria. Left ventricular hypertrophy. Diminished left ventricular contractility. Ejection fraction 35% to 40%. Septum appears to be particularly hypokinetic. Mitral, aortic, and tricuspid valves are grossly normal. There is no pericardial effusion. There is pleural effusion. CARDIAC DOPPLER STUDY WITH COLOR: 1+ tricuspid and mitral regurgitation. Pulmonary artery systolic pressure estimated at 40 mmHg. CONCLUSION 1. Mild tricuspid regurgitation with borderline pulmonary hypertension. Pulmonary artery systolic pressure estimated at 40 mmHg. The right atrium is enlarged. 2. Large pleural effusion. 3. Diminished left ventricular contractility, estimated ejection fraction of 35% to 40%. 1. Left ventricular hypertrophy. 2. Mild mitral regurgitation with dilated left atrium. Job#: [id number] VAS cc:Braulio Frey MD
[2017-07-19 16:03] VITALS: BP 131/102
[2017-07-19] MEDS ORDERED: GENTAMICIN 60MG/NS 50ML 50 ML IV ONE (16:15)
--- NOTE | 2017-07-19 16:59 | Consultation ---
DATE OF CONSULTATION: July 19, 2017 INFECTIOUS DISEASE CONSULTATION ATTENDING PHYSICIAN: Dr. Braulio Frey. REASON FOR CONSULTATION: Leukemoid reaction. Thank you, Dr. Frey, for asking me to see this patient. HISTORY: The patient is a 57-year-old woman referred for leukemoid reaction. She presented to the emergency department with shortness of breath and back pain. The patient had missed several outpatient hemodialysis sessions. She has chronic back pain, but the back pain appears to have worsened recently. She denies fever, chills, nausea, vomiting and diarrhea. In the emergency department, she was noted to have temperature of 97.7 degrees Fahrenheit, pulse 96, respiratory rate 21, blood pressure 141/98, and oxygen saturation 96% (FIO2 unknown). Initial laboratory studies showed blood leukocyte count of 26,810 with 95.2% neutrophils, troponin 0.36, AST 47, ALT 11, alk phos 176, total bilirubin 3.4 and lactic acid 20.6. The chest x-ray showed volume overload with cardiomegaly, pulmonary edema and pleural effusions. PAST MEDICAL HISTORY: Hypertension, hyperlipidemia, coronary artery disease, end-stage renal disease, chronic back pain and anemia. PAST SURGICAL HISTORY: Coronary artery bypass, Perma-Cath placement, and a hysterectomy. ALLERGIES: NO KNOWN DRUG ALLERGIES. MEDICATION: The patient received ceftriaxone 1 g IV piggyback once in the emergency room. IMMUNIZATION: She received influenza and pneumococcal vaccination prior to admission. FAMILY HISTORY: Significant for hypertension and coronary artery disease. SOCIAL HISTORY: She quit smoking cigarettes. No alcohol use. REVIEW OF SYSTEMS: As per history of present illness. Patient still complains of severe back pain but wants to go home. PHYSICAL EXAMINATION GENERAL: Moderate painful distress. VITAL SIGNS: T-max 98.4, pulse 96, respiratory rate 20, blood pressure 133/89. Weight 93 pounds. HEENT: Normocephalic. There are scabs in the scalp. There is no icterus or injection of conjunctivae. There is no ear or nasal discharge. Moist oral mucosa. Uncooperative for pharyngeal examination. NECK: No lymphadenopathy. BACK: The patient has severe kyphoscoliosis and unable to allow palpation of the spine. CHEST: The right subclavian Perma-Cath exit site is with serosanguineous discharge. LUNGS: With decreased breath sounds. HEART: Normal S1 and S2. Regular. ABDOMEN: Soft and nontender. EXTREMITIES: With 2+ edema. No clubbing or cyanosis. SKIN: There is no acute erythema. ESTATE ATTORNEY: Awake, alert and oriented to person, place and time. Nonfocal. LABORATORY AND DIAGNOSTICS: WBC 22,740, hemoglobin 11.3, platelet 105,000. Segment 88, band 6, lymph 2, mono 4. Blood culture is growing gram-positive cocci in clusters. Echocardiogram showed mild tricuspid and mitral regurgitation and large pleural effusion. IMPRESSION 1. Sepsis from CLABSI (hemodialysis catheter), present on admission. 2. Worse upper back pain raising suspicion for vertebral osteomyelitis/diskitis. 3. End-stage renal disease, noncompliant with hemodialysis. 4. Coronary artery disease. PLAN 1. Await blood isolate identification and sensitivity. Check ESR and C-reactive protein. Also check cervical and thoracic spine MRI. 2. Start vancomycin 50 mg/kg IV piggyback post hemodialysis plus gentamicin 10 mg/kg IV now. 3. Consult Interventional Radiology for hemodialysis catheter removal. 4. Pain control. Job#: [id number] EV ROCAEL
[2017-07-19] MEDS: GENTAMICIN SULFATE IV NR (19:45)
[2017-07-19] MEDS: SODIUM CHLORIDE 0.9% IV NR (19:45)
[2017-07-19 20:00] VITALS: BP 132/82
[2017-07-19] MEDS ORDERED: SODIUM CHLORIDE 0.9% 250ML 250 ML ONE (20:09)
[2017-07-19] MEDS: VANCOMYCIN 750MG/NS 150ML IVPB 150 ML IV SCH (21:00)
[2017-07-19] MEDS ORDERED: VANCOMYCIN 1GM/NS 250 ML 250 ML ONE (21:19)
[2017-07-20] VITALS (8 sets, daily range): BP systolic 118–142; BP diastolic 78–97
[2017-07-20] MEDS: TRAZODONE HCL 50 MG TAB PO PRN ×2 (01:24→23:55)
[2017-07-20 07:59] LABS: BASOPHILS # (AUTO) 0.1 (0.0-0.1); BASOPHILS % 0.3 % (0.0-1.0); HEMATOCRIT 35.4 % (34.2-44.1); HEMOGLOBIN 11.5 g/dL (12.0-16.0); LYMPHOCYTES # (AUTO) 0.4 (1.0-3.2); LYMPHOCYTES % 2.6 % (18.0-39.1); MEAN CORPUSCULAR HGB CONC 32.5 g/dL (31-35); MEAN CORPUSCULAR VOLUME 86.3 fL (81-99); MONOCYTES # (AUTO) 0.8 (0.2-0.8); MONOCYTES % 5.1 % (4.4-11.3); NEUTROPHILS # (AUTO) 13.5 (2.1-6.9); NEUTROPHILS % 88.7 % (38.7-80.0); PLATELET COUNT 62 x10e3/uL (140-360); RED CELL DISTRIBUTION WIDTH 18.2 % (11.7-14.4)
[2017-07-20 08:19] LABS: ANION GAP 18.5 mmol/L (8-16); CALCIUM 8.8 mg/dL (8.4-10.2); CREATININE, SERUM 3.36 mg/dL (0.57-1.11); POTASSIUM 3.5 mmol/L (3.5-5.1)
[2017-07-20] MEDS: HYDRALAZINE HCL 25 MG TAB PO SCH ×3 (09:00→21:00)
[2017-07-20 09:58] LABS: BILIRUBIN,URINE 1+ (NEGATIVE); CLARITY,URINE CLOUDY (CLEAR); COLOR,URINE BROWN (YELLOW); KETONES,URINE NEGATIVE (NEGATIVE); LEUKOCYTE ESTERASE ,URINE 2+ (NEGATIVE); NITRITE,URINE NEGATIVE (NEGATIVE); URINE UROBILINOGEN 1 mg/dL (0.2 - 1)
[2017-07-20 09:59] LABS: PROTEIN,URINE DIPSTICK 2+ (NEGATIVE)
[2017-07-20 10:27] LABS: BACTERIA,URINE FEW /HPF; EPITHELIAL CELLS,URINE FEW /LPF; RBC,URINE 21-50 /HPF (0-5); WBC,URINE (MAN) >50 /HPF (0-5)
[2017-07-20 12:09] LABS: BAND NEUTROPHILS % (MANUAL) 11 %; LYMPHOCYTES % (MANUAL) 5 % (19-48); MONOCYTES % (MANUAL) 8 % (3.4-9.0); NEUTROPHILS % (MANUAL) 76 % (40-74); PLATELET ESTIMATE ADEQUATE; PLATELET MORPHOLOGY COMMENT NORMAL; RBC MORPHOLOGY COMMENT NORMAL
[2017-07-20] MEDS: TRAMADOL HCL 50 MG TAB PO PRN ×2 (20:30→22:30)
[2017-07-21] VITALS: BP 144/96
[2017-07-21] MEDS: TRAMADOL HCL 50 MG TAB PO PRN ×2 (03:42→08:41)
[2017-07-21 04:00] VITALS: BP 145/94
[2017-07-21 07:39] LABS: BASOPHILS # (AUTO) 0.1 (0.0-0.1); BASOPHILS % 0.6 % (0.0-1.0); HEMATOCRIT 35.6 % (34.2-44.1); HEMOGLOBIN 11.4 g/dL (12.0-16.0); LYMPHOCYTES # (AUTO) 0.5 (1.0-3.2); LYMPHOCYTES % 2.3 % (18.0-39.1); MEAN CORPUSCULAR HEMOGLOBIN 28.3 pg (28-32); MEAN CORPUSCULAR VOLUME 88.3 fL (81-99); MONOCYTES # (AUTO) 1.1 (0.2-0.8); MONOCYTES % 5.2 % (4.4-11.3); NEUTROPHILS # (AUTO) 18.7 (2.1-6.9); NEUTROPHILS % 90.9 % (38.7-80.0); RED BLOOD COUNT 4.03 x10e6/uL (3.6-5.1); RED CELL DISTRIBUTION WIDTH 18.4 % (11.7-14.4)
[2017-07-21 07:43] LABS: PLATELET COUNT 49 x10e3/uL (140-360)
[2017-07-21 08:15] LABS: ANION GAP 22.7 mmol/L (8-16); CALCIUM 8.9 mg/dL (8.4-10.2); POTASSIUM 3.7 mmol/L (3.5-5.1)
[2017-07-21 08:16] VITALS: BP 123/91
[2017-07-21] MEDS: HYDRALAZINE HCL 25 MG TAB PO SCH ×3 (09:00→21:00)
[2017-07-21] MEDS: SODIUM CHLORIDE 0.9% IV NR (09:30)
[2017-07-21] MEDS: GENTAMICIN SULFATE IV NR (09:30)
[2017-07-21] MEDS ORDERED: GENTAMICIN 60MG/NS 50ML 50 ML IV ONE (09:45)
[2017-07-21 09:54] LABS: BAND NEUTROPHILS % (MANUAL) 3 %; LYMPHOCYTES % (MANUAL) 2 % (19-48); METAMYELOCYTES % (MANUAL) 2 % (0-0); MONOCYTES % (MANUAL) 4 % (3.4-9.0); NEUTROPHILS % (MANUAL) 89 % (40-74)
[2017-07-21 09:55] LABS: ANISOCYTOSIS SLIGHT; HYPOCHROMASIA SLIGHT; RBC MORPHOLOGY COMMENT NORMAL
[2017-07-21 09:56] LABS: PLATELET ESTIMATE MARKEDLY DECREASED; PLATELET MORPHOLOGY COMMENT FEW LARGE
[2017-07-21 11:53] VITALS: BP 113/89
[2017-07-21] MEDS: VANCOMYCIN 750MG/NS 150ML IVPB 150 ML IV SCH ×2 (16:00→17:01)
[2017-07-21 16:21] VITALS: BP 122/90
[2017-07-21 20:00] VITALS: BP 130/80
[2017-07-22] VITALS (8 sets, daily range): BP systolic 107–167; BP diastolic 81–107
[2017-07-22 06:43] LABS: BASOPHILS # (AUTO) 0.2 (0.0-0.1); BASOPHILS % 0.7 % (0.0-1.0); HEMATOCRIT 40.7 % (34.2-44.1); LYMPHOCYTES # (AUTO) 0.6 (1.0-3.2); LYMPHOCYTES % 2.3 % (18.0-39.1); MEAN CORPUSCULAR HEMOGLOBIN 28.3 pg (28-32); MEAN CORPUSCULAR HGB CONC 31.9 g/dL (31-35); MEAN CORPUSCULAR VOLUME 88.7 fL (81-99); MONOCYTES # (AUTO) 1.3 (0.2-0.8); MONOCYTES % 4.9 % (4.4-11.3); NEUTROPHILS # (AUTO) 24.3 (2.1-6.9); NEUTROPHILS % 90.3 % (38.7-80.0); RED BLOOD COUNT 4.59 x10e6/uL (3.6-5.1); RED CELL DISTRIBUTION WIDTH 18.6 % (11.7-14.4)
[2017-07-22 06:49] LABS: PLATELET COUNT 41 x10e3/uL (140-360)
[2017-07-22] MEDS: HYDRALAZINE HCL 25 MG TAB PO SCH ×3 (09:31→20:38)
[2017-07-22] MEDS: TRAMADOL HCL 50 MG TAB PO PRN ×4 (09:45→20:40)
[2017-07-22 10:25] LABS: ANISOCYTOSIS SLIGHT; BAND NEUTROPHILS % (MANUAL) 2 %; HYPOCHROMASIA SLIGHT; LYMPHOCYTES % (MANUAL) 2 % (19-48); MONOCYTES % (MANUAL) 3 % (3.4-9.0); NEUTROPHILS % (MANUAL) 91 % (40-74); PLATELET ESTIMATE MARKEDLY DECREASED; PLATELET MORPHOLOGY COMMENT FEW LARGE; PROMYELOCYTES % (MANUAL) 1 % (0-0)
[2017-07-22 10:26] LABS: RBC MORPHOLOGY COMMENT NORMAL
[2017-07-22] MEDS ORDERED: SODIUM CHLORIDE 0.9% 250ML 250 ML ONE (11:11)
[2017-07-22] MEDS: DAPTOMYCIN 250 MG in SODIUM CHLORIDE 0.9% 100 ML IV SCH (11:20)
--- NOTE | 2017-07-22 13:09 | Diagnostic Imaging Report ---
PROCEDURE:REMOVAL TUNNEDLED CV CATH COMPARISON:None. INDICATIONS:Line sepsis. FINDINGS:A color sprayer film was obtained which demonstrated a right internal jugular tunneled central venous catheter with the tip projecting over the expected region of the right atrium. The right internal jugular tunneled central venous catheter was prepped and draped in usual sterile fashion. 1% lidocaine was infused into the subcutaneous tissues for local anesthesia. Blunt dissection was utilized to mobilize the cuff of the catheter. The catheter was removed. Visual inspection of the catheter demonstrated an intact catheter. Hemostasis was obtained with manual pressure and then a single 3-0 Ethilon suture. A sterile dressing was applied. There are no immediate complications. The patient tolerated the procedure well. The patient was transferred to the post procedure area in stable unchanged condition for further monitoring. CONCLUSION: Successful removal of the right internal jugular tunneled central venous catheter utilizing fluoroscopic guidance. Dictated by: Sundeep Hunter M.D. on 07/22/2017 at 13:08 Electronically approved by: Sundeep Hunter M.D. on 07/22/2017 at 13:08
--- NOTE | 2017-07-22 13:09 | Diagnostic Imaging Report ---
PROCEDURE:REMOVAL TUNNEDLED CV CATH COMPARISON:None. INDICATIONS:Line sepsis. FINDINGS:A clinical social work aide film was obtained which demonstrated a right internal jugular tunneled central venous catheter with the tip projecting over the expected region of the right atrium. The right internal jugular tunneled central venous catheter was prepped and draped in usual sterile fashion. 1% lidocaine was infused into the subcutaneous tissues for local anesthesia. Blunt dissection was utilized to mobilize the cuff of the catheter. The catheter was removed. Visual inspection of the catheter demonstrated an intact catheter. Hemostasis was obtained with manual pressure and then a single 3-0 Ethilon suture. A sterile dressing was applied. There are no immediate complications. The patient tolerated the procedure well. The patient was transferred to the post procedure area in stable unchanged condition for further monitoring. CONCLUSION: Successful removal of the right internal jugular tunneled central venous catheter utilizing fluoroscopic guidance. Dictated by: Sundeep Hunter M.D. on 07/22/2017 at 13:08 Electronically approved by: Sundeep Hunter M.D. on 07/22/2017 at 13:08
--- NOTE | 2017-07-22 19:17 | Diagnostic Imaging Report ---
Bone Scan, three-phase Reason for exam: 57 F with MRSA septicemia likely related to hemodialysis catheter; also leukemoid reaction with worsening neck and upper back pain Radiopharmaceutical: Tc-99m MDP 22 mCi Comparison: Chest radiograph 07/19/2017; LS spine radiographs 06/23/2017 Following intravenous administration of the radiopharmaceutical, dynamic flow and immediate blood pool images of the neck and upper back followed by delayed images of the thoracic and upper lumbar spine were obtained. Flow and blood pool images show normal distribution of tracer activity to the lower neck and upper back. The delayed images show focal increased tracer bilaterally in T10 but otherwise distribution of tracer is unremarkable throughout the the thoracic and upper lumbar spine as well as in the remainder of the thorax. Impression: Osteoblastic activity in T10 bilaterally most likely represents degenerative change. No scan evidence of discitis or osteomyelitis in the thoracic or upper lumbar spine. Signed by: Dr. Laura Singh M.D. on 07/22/2017 7:14 PM
[2017-07-22] MEDS: TRAZODONE HCL 50 MG TAB PO PRN (20:39)
[2017-07-22] MEDS: HYDROCODONE/APAP 5MG-325MG TAB PO PRN (20:39)
[2017-07-23] VITALS (7 sets, daily range): BP systolic 91–126; BP diastolic 70–86
[2017-07-23 07:31] LABS: BASOPHILS # (AUTO) 0.1 (0.0-0.1); BASOPHILS % 0.4 % (0.0-1.0); EOSINOPHILS % 0.1 % (0.0-6.0); HEMOGLOBIN 12.2 g/dL (12.0-16.0); LYMPHOCYTES # (AUTO) 0.6 (1.0-3.2); LYMPHOCYTES % 2.2 % (18.0-39.1); MEAN CORPUSCULAR HEMOGLOBIN 28.3 pg (28-32); MEAN CORPUSCULAR HGB CONC 31.3 g/dL (31-35); MEAN CORPUSCULAR VOLUME 90.5 fL (81-99); MONOCYTES % 3.3 % (4.4-11.3); NEUTROPHILS # (AUTO) 26.5 (2.1-6.9); NEUTROPHILS % 92.3 % (38.7-80.0); RED BLOOD COUNT 4.31 x10e6/uL (3.6-5.1); RED CELL DISTRIBUTION WIDTH 18.5 % (11.7-14.4)
[2017-07-23 07:50] LABS: ANION GAP 17.7 mmol/L (8-16); CALCIUM 8.3 mg/dL (8.4-10.2); CREATININE, SERUM 2.91 mg/dL (0.57-1.11); POTASSIUM 3.7 mmol/L (3.5-5.1)
[2017-07-23 08:11] LABS: BAND NEUTROPHILS % (MANUAL) 1 %; LYMPHOCYTES % (MANUAL) 2 % (19-48); MONOCYTES % (MANUAL) 2 % (3.4-9.0); NEUTROPHILS % (MANUAL) 95 % (40-74)
[2017-07-23 08:12] LABS: PLATELET ESTIMATE MARKEDLY DECREASED; PLATELET MORPHOLOGY COMMENT NORMAL; RBC MORPHOLOGY COMMENT NORMAL
[2017-07-23 08:13] LABS: ANISOCYTOSIS SLIGHT
[2017-07-23 08:16] LABS: PLATELET COUNT 44 x10e3/uL (140-360)
[2017-07-23] MEDS: HYDRALAZINE HCL 25 MG TAB PO SCH ×3 (08:26→21:00)
[2017-07-23] MEDS: HYDROCODONE/APAP 5MG-325MG TAB PO PRN ×2 (08:27→14:16)
[2017-07-23] MEDS: TRAMADOL HCL 50 MG TAB PO PRN (16:29)
[2017-07-23] MEDS ORDERED: LORAZEPAM 0.5 MG TAB PO PRN (16:30)
[2017-07-23] MEDS ORDERED: RISPERIDONE 0.5 MG TAB PO PRN (16:30)
--- NOTE | 2017-07-23 17:30 | Consultation ---
DATE OF CONSULTATION: July 23, 2017 PSYCHIATRIC CONSULTATION REASON FOR CONSULTATION: To evaluate patient's mood. HISTORY OF PRESENTING ILLNESS: The patient is a 57-year-old female admitted to the hospital for end-stage renal disease on dialysis and leukocytosis. Psychiatric consultation is called to evaluate patient's mood. As per the medical record, patient was admitted in the ER complaining of generalized pain. She has history of noncompliance with dialysis. Medical history includes end-stage renal disease, degenerative joint disease, coronary artery disease noted. Patient I was well known to me from previous hospitalizations for similar presentation of confusion and mood disorder following noncompliance with dialysis. Upon evaluation today, patient is found to be lying on the bed in the medical floor in isolation. She is alert, awake but confused. She is oriented to self only. She appears to have disrobed from her hospital gown and intermittently yelling out. When asked, she does not know the reason for her anxiety or agitation. Patient is unable to answer questions at this time due to confusion. She appears to be having some visual hallucinations, believing there is somebody in her room. Patient . As per the nursing staff, patient has been yelling out, screaming constantly. She is not combative. Appetite is poor. She received trazodone 1 dose last night. Blood pressure is currently on the low side, systolic of 91 and diastolic 70. PAST PSYCHIATRIC HISTORY: Includes mood disorder. Other information unavailable at this time due to patient's confusion. FAMILY HISTORY: Unknown. SOCIAL HISTORY: Lives with . MENTAL STATUS EXAMINATION: The patient is an elderly female, appearing. She is alert, awake, and oriented to self. Mood is anxious. Affect is congruent with mood. Thought process is loose. She is delusional. Insight and judgment are impaired. Memory is impaired. Appears to be having visual hallucinations. CURRENT MEDICATION 1. Hydralazine 2. Tramadol. 3. [place]. 4. Trazodone 50 mg p.o. nightly p.r.n. 5. Daptomycin. 6. Heparin. 7. Mannitol p.r.n. IV. 8. Sodium chloride. LABS: Sodium 137, potassium 3.7, chloride 102, CO2 21, BUN 37, creatinine 2.91. WBC 28.74, RBC 4.31, hemoglobin 12.2, hematocrit 39, platelets 44. ASSESSMENT: Unspecified psychosis; adjustment order, mixed mood. PLAN 1. Ativan 0.25 mg p.o. q.8 h. p.r.n., hold for sedation and systolic blood pressure less than 90. 2. Continue trazodone 50 mg p.o. nightly p.r.n. for insomnia. 3. Add Risperdal 0.25 mg p.o. q.4 h. p.r.n. and also hold for sedation and systolic blood pressure less than 90. 4. Monitor for agitation. 5. Discuss with nursing staff. Thank you for this consultation. Dictated by: JORDANA Draper Job#: [id number] EV
[2017-07-24] VITALS: BP 118/86
[2017-07-24 04:00] VITALS: BP 129/89
[2017-07-24 08:00] VITALS: BP 145/93
[2017-07-24] MEDS: HYDRALAZINE HCL 25 MG TAB PO SCH ×3 (09:00→21:00)
[2017-07-24] MEDS ORDERED: GENTAMICIN 60MG/NS 50ML 50 ML IV ONE (10:45)
[2017-07-24] MEDS ORDERED: LIDOCAINE HCL 2% LOCAL 20 ML VIAL PRN (11:10)
[2017-07-24] MEDS ORDERED: SODIUM CHLORIDE 0.9% 500ML 500 ML PRN (11:11)
[2017-07-24] MEDS ORDERED: SODIUM CHLORIDE 0.9% 1000ML 1,000 ML PRN (11:11)
[2017-07-24] MEDS ORDERED: FENTANYL CITRATE/PF 100MCG/2 ML INJ PRN (11:46)
[2017-07-24] MEDS ORDERED: MIDAZOLAM HCL 2 MG/2 ML VIAL PRN (11:46)
[2017-07-24] MEDS ORDERED: HEPARIN SOD (PORCINE) 1000 UNIT/ML 30ML PRN (11:48)
[2017-07-24 12:35] VITALS: BP 122/92
[2017-07-24 16:00] VITALS: BP 128/90
--- NOTE | 2017-07-24 18:16 | Consultation ---
DATE OF CONSULTATION: July 24, 2017 CARDIOLOGY CONSULTATION REQUESTING PHYSICIAN: Dr. Braulio Frey. REASON FOR CONSULTATION: Possible YASSINE to rule out endocarditis. HISTORY OF PRESENT ILLNESS: This is a 57-year-old female that presented with generalized weakness. She started having shortness of breath, unable to move around, and she has missed dialysis that she was not able to breathe, and she was brought in for evaluation. She also complained of bilateral lower extremity edema, productive cough and weakness. She has a history of multiple admissions and noncompliance with medication regimen. She has a history of CAD, CABG, and she lives at home with her . Today she is undergoing dialysis, and she is crying in the room. She has elevated white blood cell and sepsis with klebsiella, and Cardiology was consulted to rule out endocarditis. PAST MEDICAL HISTORY: CAD, end-stage renal disease on dialysis, pleural effusion, hypertension, anemia, CHF, anxiety, DJD, thrombocytopenia, and noncompliance. PAST SURGICAL HISTORY: CABG, thoracentesis, dialysis catheter, hysterectomy, and Port-A-Cath placement. FAMILY HISTORY: Positive for hypertension. SOCIAL HISTORY: No smoking, no drinking. She lives at home with her . MEDICATIONS: See med list. ALLERGIES: SHE IS NOT ALLERGIC TO ANY MEDICATION. REVIEW OF SYSTEMS: Negative except those mentioned above. PHYSICAL EXAMINATION VITAL SIGNS: Temperature 96, heart rate 99, blood pressure 122/92, respiration 24, oxygen saturation 95% on room air. GENERAL: She is awake and alert. Very thin, frail. HEENT: Mucous membrane moist. NECK: Supple. LUNGS: Bilaterally decreased breath sounds. CARDIOVASCULAR: S1/S2 present. ABDOMEN: Soft. NEUROLOGICAL: She is so weak and not able to move her extremities. EXTREMITIES: Bilateral lower extremities with trace edema. LABS: Sodium 137, potassium 3.7, chloride 102, CO2 21, BUN 37, creatinine 2.91, glucose 75. White blood cell 28.7, hemoglobin 12.2, hematocrit 39.0, platelet 44. IMPRESSION 1. Elevated white blood cell. 2. Coronary artery disease with coronary artery bypass graft. 3. Thrombocytopenia. 4. End-stage renal disease on dialysis. 5. Mood disorder. ASSESSMENT/PLAN: She had an echo done last week that showed EF 35% to 40% with large pleural effusion. Will plan to do YASSINE in the morning to rule out endocarditis due to the white blood cell. Will continue same treatment, and she has been planned for LTAC. Further cardiac workup pending clinical course. Thank you for this consultation. Dictated by: Hemanth Moura NP Job#: [id number] TOMAS
[2017-07-24] MEDS: DAPTOMYCIN 250 MG in SODIUM CHLORIDE 0.9% 100 ML IV SCH (19:50)
[2017-07-24 20:00] VITALS: BP 107/73
[2017-07-24] MEDS: LORAZEPAM 0.5 MG TAB PO PRN (23:30)
[2017-07-25] VITALS (12 sets, daily range): BP systolic 86–135; BP diastolic 64–99
[2017-07-25 07:33] LABS: BASOPHILS # (AUTO) 0.1 (0.0-0.1); BASOPHILS % 0.4 % (0.0-1.0); EOSINOPHILS % 0.1 % (0.0-6.0); HEMATOCRIT 35.2 % (34.2-44.1); HEMOGLOBIN 11.5 g/dL (12.0-16.0); LYMPHOCYTES # (AUTO) 0.9 (1.0-3.2); MEAN CORPUSCULAR HEMOGLOBIN 27.9 pg (28-32); MEAN CORPUSCULAR HGB CONC 32.7 g/dL (31-35); MEAN CORPUSCULAR VOLUME 85.4 fL (81-99); MONOCYTES # (AUTO) 1.4 (0.2-0.8); MONOCYTES % 4.7 % (4.4-11.3); NEUTROPHILS # (AUTO) 26.4 (2.1-6.9); PLATELET COUNT 63 x10e3/uL (140-360); RED BLOOD COUNT 4.12 x10e6/uL (3.6-5.1); RED CELL DISTRIBUTION WIDTH 18.4 % (11.7-14.4)
[2017-07-25] MEDS ORDERED: BENZOCAINE 20% SPR 60 ML CAN PRN (07:46)
[2017-07-25 07:56] LABS: ANION GAP 15.9 mmol/L (8-16); CALCIUM 8.5 mg/dL (8.4-10.2); CREATININE, SERUM 2.74 mg/dL (0.57-1.11); POTASSIUM 3.9 mmol/L (3.5-5.1)
[2017-07-25 09:35] LABS: LYMPHOCYTES % (MANUAL) 3 % (19-48); MONOCYTES % (MANUAL) 4 % (3.4-9.0); NEUTROPHILS % (MANUAL) 92 % (40-74); PLATELET ESTIMATE MARKEDLY DECREASED
[2017-07-25 09:36] LABS: ANISOCYTOSIS SLIGHT; PLATELET MORPHOLOGY COMMENT NORMAL; RBC MORPHOLOGY COMMENT ABNORMAL
[2017-07-25] MEDS: HYDRALAZINE HCL 25 MG TAB PO SCH ×3 (09:49→21:00)
--- NOTE | 2017-07-25 10:08 | Progress Note ---
DATE: July 24, 2017 PSYCHIATRIC PROGRESS NOTE Patient was evaluated and events noted. Patient is lying on the bed. She is doing better. She is less confused. She knows where she is, the current year. She is still combative or aggressive or agitated. Patient states that she is doing fair. She is slow to respond to questions. Her appetite appears to be poor. She denies any sleep issues. She denies any hallucinations. She is not on any scheduled psychotropic medications at this time. No serious side effects seen. ASSESSMENT: Unspecified psychosis; adjustment disorder. PLAN 1. Continue Ativan 0.25 mg p.o. q.8 h. p.r.n. 2. Continue trazodone 50 mg p.o. nightly p.r.n. 3. Continue Risperdal 0.25 mg p.o. q.4 h. p.r.n. 4. Monitor for agitation. 5. Supportive therapy. Dictated by: JORDANA Draper Job#: [id number]
[2017-07-25] MEDS: RIFAMPIN 300 MG CAP PO SCH (11:23)
--- NOTE | 2017-07-25 12:51 | Diagnostic Imaging Report ---
Date and Time: 07/24/2017 Procedure: Left internal jugular high flow central venous catheter placement lead data entry operator: Dr. Ferguson Pre-operative diagnosis: End-stage renal disease, MRSA bacteremia Post-operative diagnosis: End-stage renal disease, MRSA bacteremia Conscious Sedation: Versed 0.5 mg and Fentanyl 25 mcg. The patient's heart rate and pulse oximetry were continuously monitored by the interventional radiology nurse. Blood pressure was monitored at 5 minute intervals. Additional Medications: Lidocaine 1% for local anesthesia Fluoroscopy time: 1.1 minute Dose-area Product: 109.7 cGycm2. Contrast used: None Estimated blood loss: Less than 5 cc Specimens: None Implants: 13 Thai, 20 cm triple-lumen hi flow central venous catheter DISCUSSION: Placement of a tunneled hemodialysis catheter was originally requested. However, the patient was noted to be bacteremic with MRSA on the most recently obtained blood cultures from 07/21/2017. No subsequent blood cultures have been obtained to document resolution of bacteremia with systemic antibiotic treatment. This patient was discussed with the referring physician Dr. Tran and the joint decision was made to place a nontunneled hemodialysis catheter. Given recent removal of a right internal jugular hemodialysis catheter, a left internal jugular approach was selected. Preliminary sonographic evaluation confirmed patency of the left internal jugular vein, evidenced by compressibility. The left neck was prepped and draped in the standard sterile fashion. 1% lidocaine was infiltrated into the skin and subcutaneous tissues for local anesthesia. Then under continuous sonographic guidance, a 21-gauge micropuncture needle was used to access the left internal jugular vein. A 0.0 1 8-in. wire was advanced centrally under fluoroscopic guidance. The needle was exchanged for a 5 Thai micropuncture sheath and the wire was upsized to a 0.0 3 5-in. J-wire which was advanced through the micropuncture sheath and into the inferior vena cava. The micropuncture sheath was removed over the wire and the tract was serially dilated. Then a 13 Thai, 20 cm triple-lumen hi flow central venous catheter was advanced over the wire, which was then removed. The catheter was retracted to a depth of 18 cm, with the tip positioned in the upper right atrium. Each lumen showed adequate bidirectional flow and was flushed with sterile saline. The high flow lumens were then packed with 1500 units of heparin each. The catheter was secured to the skin with monofilament nylon suture and a sterile dressing was applied. FINDINGS: Patent left internal jugular vein. IMPRESSION: Successful placement of a left internal jugular triple-lumen hi flow central venous catheter (Trialysis catheter) under sonographic and fluoroscopic guidance. Consideration may be given to placement or conversion to a tunneled hemodialysis catheter upon documentation of resolution of bacteremia by negative blood cultures. Signed by: Dr. Theo Ferguson M.D. on 07/24/2017 2:12 PM
[2017-07-25] MEDS ORDERED: PROPOFOL IV EMULSION 10 MG/ML 20 ML VIAL ONE (15:05)
[2017-07-25] MEDS: HYDROCODONE/APAP 5MG-325MG TAB PO PRN (18:19)
[2017-07-25] MEDS: TRAMADOL HCL 50 MG TAB PO PRN (18:19)
[2017-07-26 00:10] VITALS: BP 106/80
[2017-07-26 04:00] VITALS: BP 125/98
[2017-07-26] MEDS: TRAMADOL HCL 50 MG TAB PO PRN (04:41)
[2017-07-26] MEDS: LORAZEPAM 0.5 MG TAB PO PRN (05:44)
[2017-07-26 07:30] VITALS: BP 150/109
[2017-07-26 08:03] VITALS: BP 150/109
[2017-07-26] MEDS: HYDRALAZINE HCL 25 MG TAB PO SCH ×2 (09:00→15:00)
--- NOTE | 2017-07-26 09:32 | Cardiology Report ---
DATE OF STUDY: July 25, 2017 TRANSESOPHAGEAL ECHOCARDIOGRAM INDICATIONS: Rule out vegetations. DESCRIPTION OF PROCEDURE: After informed consent, the patient was brought to the endoscopy suite and placed on the table. Patient's throat was sprayed Cetacaine spray. The patient was then anesthetized by the anesthesiologist. Transesophageal probe was passed without any difficulty, and images were obtained in the usual fashion. Patient tolerated the procedure without any complications. REPORT LEFT VENTRICLE: Normal size with depressed systolic function. The overall estimated ejection fraction is about 40% to 45%. LEFT ATRIUM: Mildly dilated. No spontaneous echo contrast or thrombus is seen in the left atrium or left atrial appendage. RIGHT ATRIUM: Normal size. RIGHT VENTRICLE: Appears to be mildly dilated. There is a prominent eustachian valve noted. MITRAL VALVE: Structurally normal with intact valve excursion. No vegetations are noted on the mitral valve leaflets. Mild mitral regurgitation is noted. AORTIC NOEMY: Mildly thickened and calcified without valve excursion. No vegetations are noted on the aortic valve leaflets. No aortic regurgitation is noted. TRICUSPID VALVE: Structurally normal intact valve excursion. No vegetations are noted on tricuspid valve leaflets. Trace tricuspid regurgitation is noted. PULMONARY VALVE: On the views seen, it appears to be normal. No obvious vegetations are noted the pulmonic valve leaflets. There is no pericardial effusion noted. Pleural effusion is noted. AORTA: No significant atherosclerotic plaquing at the aorta is noted. CONCLUSIONS 1. Left ventricle normal size and mildly depressed systolic function. 2. The overall estimated ejection fraction is 40% to 45%. 3. Mild mitral regurgitation and trace tricuspid regurgitation is noted. 4. No intracardiac thrombi or vegetations noted. 5. Pleural effusion is noted. Job#: [id number]
[2017-07-26 11:27] VITALS: BP 148/96
[2017-07-26] MEDS ORDERED: GENTAMICIN 60MG/NS 50ML 50 ML IV ONE (12:00)
[2017-07-26] MEDS: RIFAMPIN 300 MG CAP PO SCH (14:00)
[2017-07-26] MEDS: HYDROCODONE/APAP 5MG-325MG TAB PO PRN (14:05)
[2017-07-26] MEDS: DAPTOMYCIN 250 MG in SODIUM CHLORIDE 0.9% 100 ML IV SCH (14:48)
[2017-07-26 16:03] VITALS: BP 133/90
[2017-07-26] MEDS ORDERED: METOPROLOL TARTRATE 25 MG TAB PO SCH (17:00)
[2017-07-26] MEDS ORDERED: ATORVASTATIN 20 MG TAB PO SCH (21:00)
[2017-07-27] MEDS ORDERED: ASPIRIN 325 MG TAB PO SCH (09:00)
--- NOTE | 2017-07-28 09:04 | Discharge Summary ---
This was one of many admissions for this patient who presented to the emergency room with multiple symptoms including shortness of breath, progressive edema. As on multiple prior occasions, the patient had been totally noncompliant regarding attendance to dialysis for an extended period of time at least weeks. She has not kept appointments to my office and I have only ever seen her in office twice, not this year. The patient was hospitalized by the emergency room physician initially. I saw the patient in the emergency room. Database was ordered to be obtained and monitored. The patient was dialyzed serially while here and was kindly followed by a physician on-call for her bilingual teacher aide. Her bilingual teacher aide has been Dr. Beltran. She was seen by Dr. Adler this stay, nephrology. The patient's hypertension was managed medically. The patient has degenerative joint disease and experienced chronic and more increased discomfort in the low back and the cervical spine. While here, she was essentially resistant to any physical activity and experienced progressive loss of range of motion of the cervical spine which she kept flexed with some fixation to the right also. The patient was not ambulatory while here. History includes coronary artery disease with prior bypass graft. No significant chest pain while here. The patient experienced marked leukemoid reaction on arrival. I requested blood cultures, which were positive for MRSA. The patient's chronic line for hemodialysis in the right subclavian area was changed while here, see operative notes by invasive radiology. The patient also has central line placed for intravenous access for antibiotics. The patient remained afebrile while here although leukemoid reaction continued to worsen. She was followed while here by consultants and infectious disease, and antibiotics were administered per recommendations. Followup cultures remained positive. Serial orders to remove the dialysis line were serially clarified. The patient was kindly seen by her psychiatrist, Dr. Dominguez while here, see notes and meds. The patient required analgesics for her low back and neck discomfort. Infectious disease did not recommend spinal tap. White count on admission 26,810, July 18. Serial CBCs monitored. White count 29,000 on July 15 with hemoglobin 11.5 g, platelet count 63,000. The patient was kindly seen by Dr. Munoz, pediatric registered nurse while here regarding her thrombocytopenia. I had requested HIT levels. These were within normal limits. Patient did have elevated FDP 40 with normals being 105. The patient had pyuria on cath UA on arrival, and urine culture was positive for E. coli, which was treated. Hepatitis A and B serology is negative. Antibodies were negative for hepatitis A and B. Hepatitis C antibody is pending. Serum chemistries were monitored while here. Admission CO2 on chemistry profile was 10 with BUN 87, creatinine 6.9, AST 47, ALT 11, alk phos elevated at 251, CPK elevated 176, MB 10.4, troponin I was 0.36 which is a normal troponin level. Globulin 4.4, elevated. Natriuretic peptide 10,400 ordered by ER. Potassium 4.3 on arrival. CO2 was 26 on July 25. Blood cultures remained positive on 2 of 2 from the , 2 of 2 from the , 2 of 2 from July 24. ER chest x-ray, volume overload, cardiomegaly, pulmonary edema and small pleural effusions on arrival. Right dialysis catheter tip, inferior right atrial area. Stable post sternotomy cardiomediastinal silhouette on followup film on the . Ultimately, the tunneled catheter was removed on July 22 by invasive radiology as requested by the patient's bilingual teacher aide, myself, and the infectious disease physician. Nuclear medicine body scan "osteoblastic activity" in T10 bilaterally most likely represents degenerative change. No scan evidence of diskitis or osteomyelitis in the thoracic or upper lumbar spine, Per Dr. Carmela Singh, radiologist. MRI of the cervical spine and thoracic, lumbar spine requested and the patient declined and was unable to cooperate apparently for exams. See operative note regarding placement of left internal jugular triple-lumen high-flow central venous catheter under fluoroscopic guidance, July [address] Ferguson, radiologist here. The patient continued while here with intermittent noncompliance. She was followed here as mentioned by her psychiatrist, who adjusted her meds serially. Ultimately, the patient was stable enough to be transferred to a long-term care hospital to continue treatment for sepsis with further reassessment as needed. CURRENT IMPRESSION: 1. Methicillin-resistant Staphylococcus aureus sepsis. Present at the time of admission. Possibly related to chronic external hemodialysis line. 2. Multiple severe chronic medical problems including chronic noncompliance. 3. End-stage renal disease. 4. Marked acidosis on arrival. 5. Fluid overload with effusions and pulmonary congestion on arrival. 6. Hypertension. 7. Mood disorder. 8. Unspecified psychosis adjustment disorder. 9. Transesophageal echocardiogram performed July 25 by the patient's order clerk, Dr. Lucero, see report, overall estimated ejection fraction 40% to 45% with mild depression of systolic function. Mild mitral regurgitation and trace tricuspid regurgitation. No intracardiac thrombi or vegetations were noted. Pleural effusion was noted. 10. 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 Patient was minimally ambulatory using a cane for an extended period of time prior to admission. 11. Coronary artery disease with prior coronary artery bypass. 12. Long history previously of recurrent effusions with prior thoracentesis elsewhere. 13. Thrombocytopenia associated with sepsis as above. 14. Marked leukemoid reaction. Persistent with left shift. Orders have been discussed with the patient's accepting hospital. She will continue antibiotics and dialysis, blood pressure monitoring. Analgesics as needed. Physical therapy. Prognosis is guarded. LALITHA LEE MD Job#: [id number]
== END 2017-07-26 17:41 | DRG 314 ==
LOC: ER 12:05 → ERHOLD 17:59 → MED/SURG3 20:02
PROVIDERS: ADMIT Internal Medicine; ATTEND Internal Medicine
PROC: 02PAX3Z Removal of Infusion Device from Heart, External Approach (ICD-10-PCS; principal; 2017-07-22)
PROC: 5A1D70Z Performance of Urinary Filtration, Intermittent, Less than 6 Hours Per Day (ICD-10-PCS; 2017-07-23)
PROC: 02HV33Z Insertion of Infusion Device into Superior Vena Cava, Percutaneous Approach (ICD-10-PCS; 2017-07-24)
PROC: 5A1D70Z Performance of Urinary Filtration, Intermittent, Less than 6 Hours Per Day (ICD-10-PCS; 2017-07-25)
PROC: 5A1D70Z Performance of Urinary Filtration, Intermittent, Less than 6 Hours Per Day (ICD-10-PCS; 2017-07-26)
DX: T80.211A Bloodstream infection due to central venous catheter, initial encounter (principal); A41.02 Sepsis due to Methicillin resistant Staphylococcus aureus; J81.0 Acute pulmonary edema; I13.2 Hypertensive heart and chronic kidney disease with heart failure and with stage 5 chronic kidney disease, or end stage renal disease; J90 Pleural effusion, not elsewhere classified; D69.59 Other secondary thrombocytopenia; E87.2 Acidosis; N18.6 End stage renal disease; I50.30 Unspecified diastolic (congestive) heart failure; I08.1 Rheumatic disorders of both mitral and tricuspid valves; Z99.2 Dependence on renal dialysis; Z91.15 Patient's noncompliance with renal dialysis; I25.10 Atherosclerotic heart disease of native coronary artery without angina pectoris; Z95.1 Presence of aortocoronary bypass graft; D72.823 Leukemoid reaction; B96.20 Unspecified Escherichia coli [E. coli] as the cause of diseases classified elsewhere; M47.894 Other spondylosis, thoracic region; G89.29 Other chronic pain; M47.892 Other spondylosis, cervical region; M47.896 Other spondylosis, lumbar region; F41.9 Anxiety disorder, unspecified; F43.23 Adjustment disorder with mixed anxiety and depressed mood; M41.9 Scoliosis, unspecified; D63.8 Anemia in other chronic diseases classified elsewhere; F28 Other psychotic disorder not due to a substance or known physiological condition
CPT/HCPCS: 36415; 36556; 36589; 71045; 74470; 77001; 78315; 80048; 80053; 81001; 82550; 82553; 82948; 83605; 83735; 83880; 84100; 84484; 85025; 85379; 85651; 86022; 86140; 86704; 86706; 86803; 87040; 87071; 87086; 87186; 87205; 87340; 90962; 93005; 93306; 93312; 93320; 93325; 96367; 99284; A9503; C1751; J0696; J1580; J1644; J2001; J2150; J2250; J3370; J7030; J7040; J7050